=== PATIENT | female | born 1960 | race Caucasian/White ===

== ENCOUNTER 2016-11-30 19:25 | Emergency (ER) | payer MEDICARE ==
[2016-11-30] MEDS ORDERED: Sodium Chloride 0.9% 10 ML Syringe FLUSH PRN (19:35)
[2016-11-30] MEDS ORDERED: LORazepam 2 MG/ML MDV IM ONE (20:00)
[2016-11-30] MEDS ORDERED: LORazepam 2 MG/ML MDV IVPUSH ONE (20:03)
[2016-11-30 20:34] VITALS: BP 154/107
--- NOTE | 2016-11-30 22:19 | ER ---
DATE SEEN: 11/30/2016 REASON FOR VISIT: Palpitations. HISTORY OF PRESENT ILLNESS: This is a 56-year-old female complaining of palpitations this morning. As noted, this has not been associated with any chest pain, but has difficulty breathing. Symptoms got worse through the day. No chest pain. REVIEW OF SYSTEMS: No fever or chills. PAST MEDICAL HISTORY: Alcohol withdrawal, anxiety, depression. PHYSICAL EXAMINATION: GENERAL: She is not in any distress. VITAL SIGNS: Initial blood pressure is 172/111, temperature 97.9, and oxygenation 100% room air. EARS, NOSE, AND THROAT: Negative. HEAD: Normal size. NECK: Supple. CHEST: Clear breath sounds. CARDIOVASCULAR: Mild tachycardia. MENTAL STATUS: Anxious. LABORATORY DATA: Normal labs including troponin and D-dimer. EKG rather is negative. IMPRESSION: Tachycardia likely anxiety disorder. PLAN: 1 mg of lorazepam improved her symptoms significantly. She was sent home to follow up in the next couple of days. Advised to drink lots of fluids. Follow up with PCP. Time seen was 1930 hours. /[id number] SIDDHARTHA/MODL
== END 2016-11-30 20:50 | disposition home or self-care (01) ==
LOC: FB.ED 19:25
DX: R00.0 Tachycardia, unspecified (principal); F41.9 Anxiety disorder, unspecified; F32.9 Major depressive disorder, single episode, unspecified
CPT/HCPCS: 36415; 80048; 83880; 84484; 85025; 85379; 93005; 96374; 99283; J2060; J7050

== ENCOUNTER 2017-02-02 16:08 | Emergency (ER) | payer MEDICARE ==
[2017-02-02] MEDS ORDERED: Metoprolol Tartrate 50 MG Tab PO ONE (16:34)
[2017-02-02] MEDS ORDERED: LORazepam 2 MG/ML MDV IVPUSH ONE (16:44)
[2017-02-02] MEDS ORDERED: Sodium Chloride 0.9% 10 ML Syringe FLUSH PRN (16:50)
--- NOTE | 2017-02-02 16:50 | EDM.PDOC ---
ED HPI GENERAL MEDICAL PROBLEM - General Chief Complaint: Cardiovascular Problem Stated Complaint: CHEST PRESSURE Time Seen by Provider: 02/02/17 16:35 Source of Information: Reports: Patient, Old Records History Limitations: Reports: Other (Don't have ready access to all of her old records.) - History of Present Illness INITIAL COMMENTS - FREE TEXT/NARRATIVE: 56 yo female was referred from the clinic for afib with RVR. States she is not currently on any meds for this. It was at least a year since she last had an episode of this. Was cardioverted in the past for this. When she went to bed last night she had a normal rhythm and rate. Awoke this morning with the tachycardia/irregular rhythm. Has no CP or SOB or diaphoresis. Last ETOH over a year ago. No tobacco for several yrs. No thyroid testing since 11/13. Onset: Today Onset Date: 02/02/17 Duration: Hour(s): Location: Reports: Chest Quality: Reports: Other (No pain.) Severity: Moderate Improves with: Reports: Rest Worsens with: Reports: Movement (Exertion) Context: Reports: Other (Hx of afib) Associated Symptoms: Reports: No Other Symptoms Treatments CLINICAL PHLEBOTOMIST: Reports: Other (see below) (none) - Related Data Allergies Allergy/AdvReac Type Severity Reaction Status Date / Time sumatriptan [From Imitrex] Allergy Severe Airway Verified 02/02/17 18:25 Tightness sumatriptan succinate Allergy Severe Airway Verified 02/02/17 18:25 [From Imitrex] Tightness amoxicillin trihydrate Allergy Rash Verified 02/02/17 18:25 [From Augmentin] aripiprazole [From Abilify] Allergy Swelling Verified 02/02/17 18:25 clonidine Allergy Other Verified 02/02/17 18:25 ketorolac tromethamine Allergy Tachycardia Verified 02/02/17 18:25 [From Toradol] methotrexate Allergy Swelling Verified 02/02/17 18:25 NSAIDS (Non-Steroidal Allergy Tachycardia Verified 02/02/17 18:25 Anti-Inflamma potassium clavulanate Allergy Rash Verified 02/02/17 18:25 [From Augmentin] pregabalin [From Lyrica] Allergy Swelling Verified 02/02/17 18:25 tramadol Allergy Seizure Verified 02/02/17 18:25 Home Meds: Home Meds Aspirin [[place] Aspirin] 81 mg PO DAILY 02/02/17 [History] LORazepam [Ativan] 0.5 mg PO Q8H PRN #7 tab 02/02/17 [Rx] LORazepam [Ativan] 0.5 mg PO TID PRN #7 tablet 02/02/17 [Rx] Metoprolol Succinate [Toprol XL] 50 mg PO BEDTIME #30 tab.er 02/02/17 [Rx] Potassium Chloride 10 meq PO TID #20 cap.er 02/02/17 [Rx] Rivaroxaban [Xarelto] 20 mg PO DAILY #30 tablet 02/02/17 [Rx] Past Medical History Cardiovascular History: Reports: Afib, Hypertension, [place] Gastrointestinal History: Reports: Bowel Obstruction, Hiatal Hernia Genitourinary History: Reports: Renal 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 - Past Surgical History GI Surgical History: Reports: Bariatric Procedure Musculoskeletal Surgical History: Reports: Other (See Below) Social & Family History - Family History Family Medical History: Noncontributory - Tobacco Use Smoking Status *Q: Never Smoker Used Tobacco, but Quit: Yes Month Tobacco Last Used: mar 2005 Second Hand Smoke Exposure: No - Caffeine Use Caffeine Use: Reports: Coffee, Soda - Alcohol Use Days Per Week of Alcohol Use: 1 Number of Drinks Per Day: 3 Total Drinks Per Week: 3 - Recreational Drug Use Recreational Drug Use: No - Living Situation & Occupation Living situation: Reports: Occupation: Disabled ED ROS GENERAL - Review of Systems Review Of Systems: See Below Constitutional: Reports: No Symptoms HEENT: Reports: No Symptoms Respiratory: Reports: No Symptoms Cardiovascular: Reports: Palpitations GI/Abdominal: Reports: No Symptoms Musculoskeletal: Reports: No Symptoms Skin: Reports: No Symptoms Neurological: Reports: No Symptoms Psychiatric: Reports: Anxiety ED EXAM, GENERAL - Physical Exam Exam: See Below Exam Limited By: No Limitations General Appearance: Alert, WD/WN, No Apparent Distress Eye Exam: Bilateral Eye: Normal Inspection Ears: Normal External Exam, Normal Canal, Hearing Grossly Normal Ear Exam: Bilateral Ear: Auricle Normal, Canal Normal Nose: Normal Inspection, Normal Mucosa Throat/Mouth: Normal Inspection, Normal Lips, Normal Oropharynx, Normal Voice, No Airway Compromise Head: Atraumatic, Normocephalic Neck: Normal Inspection, Supple Respiratory/Chest: No Respiratory Distress, Lungs Clear, Normal Breath Sounds, No Accessory Muscle Use Cardiovascular: Tachycardia, Irregularly Irregular GI/Abdominal: Normal Bowel Sounds, Soft, Non-Tender, No Distention Back Exam: Normal Inspection. No: CVA Tenderness (R), CVA Tenderness (L) Extremities: Normal Inspection, Normal Range of Motion, Non-Tender, No Pedal Edema Neurological: Alert, Oriented, CN II-XII Intact, Normal Cognition, No Motor/ Sensory Deficits Psychiatric: Normal Affect, Normal Mood Skin Exam: Warm, Dry, Intact, Normal Color, No Rash Lymphatic: No Adenopathy ED CARDIOLOGY PROCEDURES - Cardioversion Time of Cardioversion: 17:10 Indication: Atrial Fibrillation with RVR Patient Counseled: Yes Informed Consent Obtained: Yes Preparation: IV Access, Airway Management Equipment, Supplemental Oxygen, Other (anesthesia here with patient) Pre-Procedure Sedation: Propofol Cardioversion Energy: 200J Sync Mode: Monophasic Successful: Yes Number of Attempts: 1 Patient Condition Post Cardioversion: Improved Post Cardioversion EKG Reviewed: No (front desk monitor showed NSR) Course - Vital Signs Text/Narrative:: CHADS2 score 1, low risk. Discussed case with Dr. Griffin, [facility] Cardiology @ 1810h Xarelto recommended by Dr. Griffin, will provide an Rx for this and have patient discuss with her provider. Last Recorded V/S: Last Vital Signs Temp 36.1 C 02/02/17 17:39 Pulse 106 H 02/02/17 18:30 Resp 14 02/02/17 17:39 BP 132/75 02/02/17 18:30 Pulse Ox 99 02/02/17 17:39 - Orders/Labs/Meds Orders: Active Orders 24 hr Category Date Time Status Cardiac Monitoring [RC] .As Directed Care 02/02/17 16:26 Active EKG Documentation Completion [RC] ASDIRECTED Care 02/02/17 16:25 Active Saline Lock Insert [OM.PC] Routine Oth 02/02/17 16:50 Ordered EKG 12 Lead [EK] Routine Ther 02/02/17 16:25 Ordered Labs: Laboratory Tests 02/02/17 02/02/17 02/02/17 Range/Units 16:40 16:40 16:40 WBC 7.3 (4.5-12.0) X10-3/uL RBC 4.08 (3.23-5.20) x10(6)uL Hgb 8.2 L (11.5-15.5) g/dL Hct 28.2 L (30.0-51.3) % MCV 69.0 L (80-96) fL MCH 20.0 L (27.7-33.6) pg MCHC 29.0 L (32.2-35.4) g/dL RDW 18.6 H (11.5-15.5) % Plt Count 369 (125-369) X10(3)uL Sodium 143 (135-145) mmol/L Potassium 3.1 L (3.5-5.3) mmol/L Chloride 114 H D (100-110) mmol/L Carbon Dioxide 16 L (23-29) mmol/L BUN 14 (5-20) mg/dL Creatinine 0.5 L (0.6-1.3) mg/dL Est Cr Clr Drug Dosing TNP Estimated GFR (MDRD) > 60 (>60) BUN/Creatinine Ratio 28.0 H (9-20) Glucose 63 L (80-116) mg/dL Calcium 8.2 L (8.6-10.2) mg/dL Magnesium (1.8-2.5) mg/dL Troponin I 0.01 L (0.02-0.06) NG/ML TSH, Ultra Sensitive (0.4-5.5) nlU/mL 02/02/17 02/02/17 Range/Units 16:40 16:40 WBC (4.5-12.0) X10-3/uL RBC (3.23-5.20) x10(6)uL Hgb (11.5-15.5) g/dL Hct (30.0-51.3) % MCV (80-96) fL MCH (27.7-33.6) pg MCHC (32.2-35.4) g/dL RDW (11.5-15.5) % Plt Count (125-369) X10(3)uL Sodium (135-145) mmol/L Potassium (3.5-5.3) mmol/L Chloride (100-110) mmol/L Carbon Dioxide (23-29) mmol/L BUN (5-20) mg/dL Creatinine (0.6-1.3) mg/dL Est Cr Clr Drug Dosing Estimated GFR (MDRD) (>60) BUN/Creatinine Ratio (9-20) Glucose (80-116) mg/dL Calcium (8.6-10.2) mg/dL Magnesium 1.9 (1.8-2.5) mg/dL Troponin I (0.02-0.06) NG/ML TSH, Ultra Sensitive 1.62 (0.4-5.5) nlU/mL Meds: Medications Discontinued Medications Generic Name Dose Route Start Last Admin Trade Name Freq PRN Reason Stop Dose Admin Aspirin 243 mg 02/02/17 18:38 02/02/17 18:48 Aspirin PO 02/02/17 18:39 243 mg ONETIME ONE Administration Lactated Ringer's 1,000 mls @ 0 mls/hr 02/02/17 17:15 02/02/17 18:07 Ringers, Lactated IV 10 mls/hr ASDIRECTED KATHRYN Administration KVO Lorazepam 1 mg 02/02/17 16:44 02/02/17 16:54 Ativan IVPUSH 02/02/17 16:45 1 mg ONETIME ONE Administration Metoprolol Succinate 50 mg 02/02/17 18:13 02/02/17 18:30 Toprol Xl PO 02/02/17 18:14 50 mg ONETIME ONE Administration Metoprolol Succinate 50 mg 02/02/17 18:35 02/02/17 18:48 Toprol Xl PO 02/02/17 18:36 Not Given ONETIME ONE Metoprolol Succinate Confirm 02/02/17 18:28 02/02/17 18:49 Toprol Xl Administered 02/02/17 18:29 Not Given Dose 50 mg .ROUTE .STK-MED ONE Metoprolol Tartrate 50 mg 02/02/17 16:34 02/02/17 18:17 Lopressor PO 02/02/17 16:35 Not Given ONETIME ONE Metoprolol Tartrate Confirm 02/02/17 18:24 02/02/17 18:47 Lopressor Administered 02/02/17 18:25 Not Given Dose 50 mg .ROUTE .STK-MED ONE Potassium Chloride 40 meq 02/02/17 17:18 02/02/17 18:06 Klor-Con 10 PO 02/02/17 17:19 40 meq ONETIME ONE Administration Sodium Chloride 10 ml 02/02/17 16:50 02/02/17 16:40 Saline Flush FLUSH 10 ml ASDIRECTED PRN Administration Keep Vein Open Departure - Departure Time of Disposition: 18:35 Disposition: Home, Self-Care 01 Condition: Good Clinical Impression: Atrial fibrillation with RVR, Hypokalemia Prescriptions: LORazepam [Ativan] 0.5 mg PO TID PRN #7 tablet PRN Reason: Anxiety LORazepam [Ativan] 0.5 mg PO Q8H PRN #7 tab PRN Reason: Anxiety Metoprolol Succinate [Toprol XL] 50 mg PO BEDTIME #30 tab.er Potassium Chloride 10 meq PO TID #20 cap.er Rivaroxaban [Xarelto] 20 mg PO DAILY #30 tablet Referrals: Rolf Paige MD [Primary Care Provider] - Forms: ED Department Discharge Additional Instructions: Take metoprolol succinate 50 mg every evening. Take either aspirin 81 mg po x 4 daily with food OR Xarelto 20 mg daily(discuss with your provider). Use the potassium 3 times a day until gone. Eat a high potassium diet. Take lorazepam as needed for anxiety. See your doctor for recheck within the week, call for an appt. Return to the ER as needed. Discuss with your provider possible referral to cardiology for elecrophysiological studies(EPS) if your atrial fibrillation returns. Avoid alcohol or tobacco products. - My Orders Last 24 Hours: My Active Orders 02/02/17 16:25 EKG Documentation Completion [RC] ASDIRECTED EKG 12 Lead [EK] Routine 02/02/17 16:26 Cardiac Monitoring [RC] .As Directed 02/02/17 16:50 Saline Lock Insert [OM.PC] Routine - Assessment/Plan Last 24 Hours: My Active Orders 02/02/17 16:25 EKG Documentation Completion [RC] ASDIRECTED EKG 12 Lead [EK] Routine 02/02/17 16:26 Cardiac Monitoring [RC] .As Directed 02/02/17 16:50 Saline Lock Insert [OM.PC] Routine
[2017-02-02] MEDS ORDERED: Propofol 200 MG/20 ML SDV IV ONE (16:55)
[2017-02-02] MEDS ORDERED: Midazolam 1 MG/ML 2 ML SDV IV ONE (16:55)
[2017-02-02] MEDS ORDERED: Lactated Ringers 1,000 ML IV SCH (17:15)
[2017-02-02] MEDS ORDERED: Potassium Chloride 10 MEQ Tab.ER PO ONE (17:18)
[2017-02-02] MEDS ORDERED: Metoprolol Succinate 50 MG Tab.ER PO ONE ×2 (18:13→18:35)
[2017-02-02] MEDS ORDERED: Metoprolol Tartrate 50 MG Tab ONE (18:24)
[2017-02-02] MEDS ORDERED: Metoprolol Succinate 50 MG Tab.ER ONE (18:28)
[2017-02-02] MEDS ORDERED: Aspirin 81 MG Tab.Chew PO ONE (18:38)
[2017-02-02 18:46] VITALS: BP 132/75
== END 2017-02-02 18:49 | disposition home or self-care (01) ==
LOC: FB.ED 16:08
DX: I48.91 Unspecified atrial fibrillation (principal); E87.6 Hypokalemia; I10 Essential (primary) hypertension; I25.2 Old myocardial infarction; G43.909 Migraine, unspecified, not intractable, without status migrainosus; Z98.84 Bariatric surgery status; Z79.82 Long term (current) use of aspirin; Z79.899 Other long term (current) drug therapy; Z88.1 Allergy status to other antibiotic agents; Z88.8 Allergy status to other drugs, medicaments and biological substances; Z88.6 Allergy status to analgesic agent; Z88.2 Allergy status to sulfonamides
CPT/HCPCS: 36415; 80048; 83735; 84443; 84484; 85027; 92960; 93005; 96361; 96374; 96375; 99284; 99285; A9270; J2060; J2250; J2704; J7050; J7120

== ENCOUNTER 2017-02-11 14:35 | Emergency (ER) | payer MEDICARE ==
[2017-02-11] MEDS ORDERED: LORazepam 1 MG Tab PO ONE (15:14)
--- NOTE | 2017-02-11 15:24 | EDM.PDOCBH ---
ED HPI GENERAL MEDICAL PROBLEM - General Chief Complaint: Behavioral/Psych Stated Complaint: DT'S AND SOB AND CHEST PAIN Time Seen by Provider: 02/11/17 15:00 Source of Information: Reports: Patient, Old Records History Limitations: Reports: No Limitations - History of Present Illness INITIAL COMMENTS - FREE TEXT/NARRATIVE: 56 yo female presents with chest tightness most of the day today. She has a pHx of CAD and alcoholism. Had been sober for over a year and drank last night to the point of blacking out. Apparently hit her forehead and the back of her head last night, but does not remember it. Is now also shaky. Feels anxious. Is on metoprolol for HTN and has not missed any doses of this. Onset: Today Onset Date: 02/11/17 Onset Time: 08:00 Duration: Hour(s):, Constant Location: Reports: Chest Quality: Reports: Other (heaviness/mild pressure) Severity: Moderate Improves with: Reports: None Worsens with: Reports: None Context: Reports: Other (drank alcohol heavily last night.) Associated Symptoms: Reports: Chest Pain. Denies: Diaphoresis, Fever/Chills, Nausea/Vomiting, Shortness of Breath Treatments CLINICAL CARE LEADER: Reports: Other (see below) (none) - Related Data Allergies Allergy/AdvReac Type Severity Reaction Status Date / Time sumatriptan [From Imitrex] Allergy Severe Airway Verified 02/02/17 18:25 Tightness sumatriptan succinate Allergy Severe Airway Verified 02/02/17 18:25 [From Imitrex] Tightness amoxicillin trihydrate Allergy Rash Verified 02/02/17 18:25 [From Augmentin] aripiprazole [From Abilify] Allergy Swelling Verified 02/02/17 18:25 clonidine Allergy Other Verified 02/02/17 18:25 ketorolac tromethamine Allergy Tachycardia Verified 02/02/17 18:25 [From Toradol] methotrexate Allergy Swelling Verified 02/02/17 18:25 NSAIDS (Non-Steroidal Allergy Tachycardia Verified 02/02/17 18:25 Anti-Inflamma potassium clavulanate Allergy Rash Verified 02/02/17 18:25 [From Augmentin] pregabalin [From Lyrica] Allergy Swelling Verified 02/02/17 18:25 tramadol Allergy Seizure Verified 02/02/17 18:25 Home Meds: Home Meds Aspirin [[place] Aspirin] 81 mg PO DAILY 02/02/17 [History] LORazepam [Ativan] 0.5 mg PO Q8H PRN #7 tab 02/02/17 [Rx] LORazepam [Ativan] 0.5 mg PO TID PRN #7 tablet 02/02/17 [Rx] Metoprolol Succinate [Toprol XL] 50 mg PO BEDTIME #30 tab.er 02/02/17 [Rx] Potassium Chloride 10 meq PO TID #20 cap.er 02/02/17 [Rx] Rivaroxaban [Xarelto] 20 mg PO DAILY #30 tablet 02/02/17 [Rx] Past Medical History Cardiovascular History: Reports: Afib, Hypertension, [place] Gastrointestinal History: Reports: Bowel Obstruction, Hiatal Hernia Genitourinary History: Reports: Renal Calculus 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 - Infectious Disease History Infectious Disease History: Reports: Chicken Pox, Measles, Mumps - Past Surgical History GI Surgical History: Reports: Bariatric Procedure Musculoskeletal Surgical History: Reports: Other (See Below) Social & Family History - Family History Family Medical History: Noncontributory - Tobacco Use Smoking Status *Q: Former Smoker Used Tobacco, but Quit: Yes Month Tobacco Last Used: may 2009 Second Hand Smoke Exposure: No - Caffeine Use Caffeine Use: Reports: Coffee, Soda - Alcohol Use Days Per Week of Alcohol Use: 1 Number of Drinks Per Day: 3 Total Drinks Per Week: 3 - Recreational Drug Use Recreational Drug Use: No - Living Situation & Occupation Living situation: Reports: Occupation: Disabled ED ROS GENERAL - Review of Systems Review Of Systems: See Below Constitutional: Reports: No Symptoms HEENT: Reports: No Symptoms Respiratory: Reports: No Symptoms Cardiovascular: Reports: Chest Pain Endocrine: Reports: No Symptoms GI/Abdominal: Reports: No Symptoms : Reports: Dysuria (mild) Musculoskeletal: Reports: No Symptoms Skin: Reports: No Symptoms Neurological: Reports: No Symptoms Psychiatric: Reports: Anxiety ED EXAM, BEHAVIORAL HEALTH - Physical Exam Exam: See Below Exam Limited By: No Limitations General Appearance: Alert, WD/WN, No Apparent Distress, Anxious Eye Exam: Bilateral Eye: Normal Inspection Ears: Normal External Exam, Normal Canal, Hearing Grossly Normal Nose: Normal Inspection, Normal Mucosa Throat/Mouth: Normal Inspection, Normal Lips, Normal Teeth, Normal Oropharynx, Normal Voice, No Airway Compromise Head: Atraumatic, Normocephalic Neck: Normal Inspection, Supple, Non-Tender Respiratory/Chest: No Respiratory Distress, Lungs Clear, Normal Breath Sounds, No Accessory Muscle Use Cardiovascular: Regular Rate, Rhythm EKG INTERPRETATION EKG Date: 02/11/17 Time: 15:00 Rhythm: NSR Rate (Beats/Min): 100 Silver: Normal P-Wave: Present QRS: Normal ST-T: Normal QT: Normal (no longer in Afib) Comparison: Change From Previous EKG (No longer in atrial fibrillation.) COURSE, BEHAVIORAL HEALTH COMP - Course Vital Signs: Last Vital Signs Temp 37.2 C 02/11/17 14:40 Pulse 86 02/11/17 16:46 Resp 18 02/11/17 16:46 BP 153/82 H 02/11/17 16:46 Pulse Ox 99 02/11/17 16:46 Orders, Labs, Meds: Active Orders 24 hr Category Date Time Status Cardiac Monitoring [RC] .As Directed Care 02/11/17 14:51 Active EKG 12 Lead [EK] Routine Ther 02/11/17 14:51 Ordered Laboratory Tests 02/11/17 02/11/17 Range/Units 15:34 15:42 Troponin I < 0.01 L (0.02-0.06) NG/ML Urine Color Yellow (YELLOW) Urine Appearance Slightly cloudy (CLEAR) Urine pH 5.0 (5.0-6.5) Ur Specific Fisher 1.025 (1.010-1.025) Urine Protein 30 H (NEGATIVE) mg/dL Urine Glucose (UA) Normal (NEGATIVE) mg/dL Urine Ketones Negative (NEGATIVE) mg/dL Urine Occult Blood Negative (NEGATIVE) Urine Nitrite Negative (NEGATIVE) Urine Bilirubin Small H (NEGATIVE) Urine Urobilinogen Normal (NEGATIVE) mg/dL Ur Leukocyte Esterase Negative (NEGATIVE) Urine RBC 0-5 (0) Urine WBC 0-5 (0) Ur Squamous Epith Cells Few H (NS,R,O) Urine Bacteria Few H (NS) Coarse Granular Casts Few H (NS) Medications Discontinued Medications Generic Name Dose Route Start Last Admin Trade Name Freq PRN Reason Stop Dose Admin Lorazepam 1 mg 02/11/17 15:14 02/11/17 15:22 Ativan PO 02/11/17 15:15 1 mg ONETIME ONE Administration Metoprolol Tartrate 50 mg 02/11/17 15:59 02/11/17 16:08 Lopressor PO 02/11/17 16:00 50 mg ONETIME ONE Administration Departure - Departure Time of Disposition: 17:04 Disposition: Home, Self-Care 01 Condition: Fair Clinical Impression: HTN (hypertension) Qualifiers: Hypertension type: unspecified Qualified Code(s): I10 - Essential (primary) hypertension Alcohol withdrawal Qualifiers: Complication of substance-induced condition: uncomplicated Qualified Code(s): F10.230 - Alcohol dependence with withdrawal, uncomplicated Contusion of scalp Qualifiers: Encounter type: initial encounter Qualified Code(s): S00.03XA - Contusion of scalp, initial encounter - Discharge Information Referrals: Rolf Paige MD [Primary Care Provider] - Forms: ED Department Discharge - My Orders Last 24 Hours: My Active Orders 02/11/17 14:51 Cardiac Monitoring [RC] .As Directed EKG 12 Lead [EK] Routine - Assessment/Plan Last 24 Hours: My Active Orders 02/11/17 14:51 Cardiac Monitoring [RC] .As Directed EKG 12 Lead [EK] Routine
[2017-02-11] MEDS ORDERED: Metoprolol Tartrate 50 MG Tab PO ONE (15:59)
[2017-02-11 17:14] VITALS: BP 146/74
== END 2017-02-11 17:20 | disposition home or self-care (01) ==
LOC: FB.ED 14:35
DX: S00.03XA Contusion of scalp, initial encounter (principal); F10.230 Alcohol dependence with withdrawal, uncomplicated; I10 Essential (primary) hypertension; I48.91 Unspecified atrial fibrillation; I25.2 Old myocardial infarction; F41.9 Anxiety disorder, unspecified; Z88.8 Allergy status to other drugs, medicaments and biological substances; Z88.1 Allergy status to other antibiotic agents; Z88.6 Allergy status to analgesic agent; Z88.5 Allergy status to narcotic agent; Z79.82 Long term (current) use of aspirin; Z79.899 Other long term (current) drug therapy; Z87.442 Personal history of urinary calculi; Z87.891 Personal history of nicotine dependence; W22.8XXA Striking against or struck by other objects, initial encounter
CPT/HCPCS: 36415; 81001; 84484; 93005; 99284; A9270

== ENCOUNTER 2017-02-17 03:40 | Emergency (ER) | payer MEDICARE ==
--- NOTE | 2017-02-17 04:41 | EDM.PDOC ---
ED HPI GENERAL MEDICAL PROBLEM - General Chief Complaint: Chest Pain Stated Complaint: CHEST PAIN Time Seen by Provider: 02/17/17 04:04 Source of Information: Reports: Patient, Family History Limitations: Reports: No Limitations - History of Present Illness INITIAL COMMENTS - FREE TEXT/NARRATIVE: 56 y.o.w.f. -smoker- came to the ed due to left ant chest pain, same at on 2016. Pt was at that time d/c'd with anxiety. Pt tooke all her meds, Today, she woke up again with chest pain. No N/V/D or diaphoresis. No trauma. No dizziness. No other acute medical issues at this time. Onset: Unknown/Unsure Onset Date: 02/16/17 Onset Time: 07:00 Duration: Hour(s): Location: Reports: Chest Quality: Reports: Ache Severity: Mild Improves with: Reports: Rest Worsens with: Reports: Movement Context: Reports: Other Associated Symptoms: Reports: No Other Symptoms - Related Data Allergies Allergy/AdvReac Type Severity Reaction Status Date / Time sumatriptan [From Imitrex] Allergy Severe Airway Verified 02/17/17 03:59 Tightness sumatriptan succinate Allergy Severe Airway Verified 02/17/17 03:59 [From Imitrex] Tightness amoxicillin trihydrate Allergy Rash Verified 02/17/17 03:59 [From Augmentin] aripiprazole [From Abilify] Allergy Swelling Verified 02/17/17 03:59 clonidine Allergy Other Verified 02/17/17 03:59 ketorolac tromethamine Allergy Tachycardia Verified 02/17/17 03:59 [From Toradol] methotrexate Allergy Swelling Verified 02/17/17 03:59 NSAIDS (Non-Steroidal Allergy Tachycardia Verified 02/17/17 03:59 Anti-Inflamma potassium clavulanate Allergy Rash Verified 02/17/17 03:59 [From Augmentin] pregabalin [From Lyrica] Allergy Swelling Verified 02/17/17 03:59 tramadol Allergy Seizure Verified 02/17/17 03:59 Home Meds: Home Meds Aspirin [[place] Aspirin] 81 mg PO DAILY 02/02/17 [History] Metoprolol Succinate [Toprol XL] 50 mg PO BEDTIME #30 tab.er 02/02/17 [Rx] LORazepam 1 mg PO QID PRN #14 tablet 02/11/17 [Rx] LORazepam [Ativan] 0.5 mg PO BID PRN #5 tab 02/17/17 [Rx] Past Medical History Cardiovascular History: Reports: Afib, Hypertension, [place] Gastrointestinal History: Reports: Bowel Obstruction, Hiatal Hernia Genitourinary History: Reports: Renal Calculus [employer]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 - Infectious Disease History Infectious Disease History: Reports: Chicken Pox, Measles, Mumps - Past Surgical History GI Surgical History: Reports: Bariatric Procedure Musculoskeletal Surgical History: Reports: Other (See Below) Social & Family History - Family History Family Medical History: Noncontributory - Tobacco Use Smoking Status *Q: Never Smoker Years of Tobacco use: 42 Used Tobacco, but Quit: Yes Month Tobacco Last Used: may 2009 Second Hand Smoke Exposure: No - Caffeine Use Caffeine Use: Reports: Coffee, Soda - Alcohol Use Days Per Week of Alcohol Use: 1 Number of Drinks Per Day: 3 Total Drinks Per Week: 3 Date of Last Drink: 02/12/17 - Recreational Drug Use Recreational Drug Use: No - Living Situation & Occupation Living situation: Reports: Occupation: Disabled ED ROS GENERAL - Review of Systems Review Of Systems: See Below Constitutional: Reports: No Symptoms HEENT: Reports: No Symptoms Respiratory: Reports: No Symptoms Cardiovascular: Reports: Chest Pain Endocrine: Reports: No Symptoms GI/Abdominal: Reports: No Symptoms : Reports: No Symptoms Musculoskeletal: Reports: No Symptoms Skin: Reports: No Symptoms Neurological: Reports: No Symptoms Psychiatric: Reports: No Symptoms Hematologic/Lymphatic: Reports: No Symptoms Immunologic: Reports: No Symptoms ED EXAM, GENERAL - Physical Exam Exam: See Below Exam Limited By: No Limitations General Appearance: Alert, WD/WN, Anxious Eye Exam: Bilateral Eye: Normal Inspection Ears: Normal External Exam Ear Exam: Bilateral Ear: Auricle Normal Nose: Normal Inspection, Normal Mucosa Throat/Mouth: Normal Inspection, Normal Lips Head: Atraumatic, Normocephalic Neck: Normal Inspection, Supple, Non-Tender Respiratory/Chest: No Respiratory Distress, Lungs Clear, Normal Breath Sounds Cardiovascular: Normal Peripheral Pulses, Regular Rate, Rhythm, No Edema, No Gallop Peripheral Pulses: 1+: Femoral (L), Femoral (R) GI/Abdominal: Normal Bowel Sounds, Soft, Non-Tender (Female) Exam: Deferred Rectal (Female) Exam: Deferred Back Exam: Normal Inspection, Full Range of Motion Extremities: Normal Inspection (s/p surgery r ankle) Neurological: Alert, Oriented, CN II-XII Intact Psychiatric: Normal Affect, Normal Mood Skin Exam: Warm, Dry, Intact, Normal Color Lymphatic: No Adenopathy EKG INTERPRETATION EKG Date: 02/17/17 Time: 03:50 Rhythm: NSR Rate (Beats/Min): 54 [place]: Normal P-Wave: Present QRS: Normal ST-T: Normal QT: Normal Comparison: NA - No Prior EKG Course - Vital Signs Text/Narrative:: 56 y.o.w.f. -smoker- came to the ed due to left ant chest pain, same at on 2016. Pt was at that time d/c'd with anxiety. Pt tooke all her meds, Today, she woke up again with chest pain. No N/V/D or diaphoresis. No trauma. No dizziness. No other acute medical issues at this time. PE: Anxiety Labs: HGB 9.0, Troponin 0.01 Na 140, K 3.6 CXR: not indicated Impression: Atypical chest pain Tx: Ativan Reexam: Improved Plan: D/C with instruction Last Recorded V/S: Last Vital Signs Temp 36.4 C 02/17/17 04:04 Pulse 57 L 02/17/17 05:00 Resp 18 02/17/17 04:04 BP 137/56 L 02/17/17 05:00 Pulse Ox 100 02/17/17 04:04 - Orders/Labs/Meds Orders: Active Orders 24 hr Category Date Time Status EKG 12 Lead [EK] Routine Ther 02/17/17 03:45 Ordered Labs: Laboratory Tests 02/17/17 02/17/17 02/17/17 Range/Units 03:55 03:55 03:55 WBC 6.5 (4.5-12.0) X10-3/uL RBC 4.62 (3.23-5.20) x10(6)uL Hgb 9.0 L (11.5-15.5) g/dL Hct 31.0 (30.0-51.3) % MCV 67.1 L (80-96) fL MCH 19.5 L (27.7-33.6) pg MCHC 29.0 L (32.2-35.4) g/dL RDW 18.0 H (11.5-15.5) % Plt Count 237 (125-369) X10(3)uL Sodium 140 (135-145) mmol/L Potassium 3.6 (3.5-5.3) mmol/L Chloride 107 D (100-110) mmol/L Carbon Dioxide 24 (23-29) mmol/L BUN 10 (5-20) mg/dL Creatinine 0.4 L (0.6-1.3) mg/dL Est Cr Clr Drug Dosing TNP Estimated GFR (MDRD) > 60 (>60) BUN/Creatinine Ratio 25.0 H (9-20) Glucose 101 (80-116) mg/dL POC Glucose (80-116) mg/dL Calcium 8.7 (8.6-10.2) mg/dL Total Bilirubin 0.3 (0.1-1.3) mg/dL AST 31 H D (5-27) IU/L ALT 32 H D (14-26) IU/L Alkaline Phosphatase 138 H (56-112) IU/L Troponin I < 0.01 L (0.02-0.06) NG/ML Total Protein 6.5 (6.0-8.0) g/dL Albumin 3.7 (3.5-5.2) g/dL Globulin 2.8 g/dL Albumin/Globulin Ratio 1.3 02/17/17 Range/Units 04:19 WBC (4.5-12.0) X10-3/uL RBC (3.23-5.20) x10(6)uL Hgb (11.5-15.5) g/dL Hct (30.0-51.3) % MCV (80-96) fL MCH (27.7-33.6) pg MCHC (32.2-35.4) g/dL RDW (11.5-15.5) % Plt Count (125-369) X10(3)uL Sodium (135-145) mmol/L Potassium (3.5-5.3) mmol/L Chloride (100-110) mmol/L Carbon Dioxide (23-29) mmol/L BUN (5-20) mg/dL Creatinine (0.6-1.3) mg/dL Est Cr Clr Drug Dosing Estimated GFR (MDRD) (>60) BUN/Creatinine Ratio (9-20) Glucose (80-116) mg/dL POC Glucose 103 (80-116) mg/dL Calcium (8.6-10.2) mg/dL Total Bilirubin (0.1-1.3) mg/dL AST (5-27) IU/L ALT (14-26) IU/L Alkaline Phosphatase (56-112) IU/L Troponin I (0.02-0.06) NG/ML Total Protein (6.0-8.0) g/dL Albumin (3.5-5.2) g/dL Globulin g/dL Albumin/Globulin Ratio Meds: Medications Discontinued Medications Generic Name Dose Route Start Last Admin Trade Name Freq PRN Reason Stop Dose Admin Lorazepam 0.5 mg 02/17/17 05:00 02/17/17 05:03 Ativan PO 02/17/17 05:01 0.5 mg ONETIME ONE Administration Departure - Departure Time of Disposition: 05:00 Disposition: Home, Self-Care 01 Condition: Good Clinical Impression: Anxiety, Atypical chest pain Prescriptions: LORazepam [Ativan] 0.5 mg PO BID PRN #5 tab PRN Reason: severe anxiety Referrals: Rolf Paige MD [Primary Care Provider] - Forms: ED Department Discharge Additional Instructions: Please f/u with your PMD, please come back if your symptoms get worse acutely - My Orders Last 24 Hours: My Active Orders 02/17/17 03:45 EKG 12 Lead [EK] Routine - Assessment/Plan Last 24 Hours: My Active Orders 02/17/17 03:45 EKG 12 Lead [EK] Routine
[2017-02-17] MEDS ORDERED: LORazepam 0.5 MG Tab PO ONE (05:00)
[2017-02-17 05:42] VITALS: BP 137/56
== END 2017-02-17 05:10 | disposition home or self-care (01) ==
LOC: FB.ED 03:40
DX: F41.9 Anxiety disorder, unspecified (principal); R07.89 Other chest pain; I10 Essential (primary) hypertension; I25.2 Old myocardial infarction; G43.909 Migraine, unspecified, not intractable, without status migrainosus; Z88.1 Allergy status to other antibiotic agents; Z88.8 Allergy status to other drugs, medicaments and biological substances; Z79.82 Long term (current) use of aspirin
CPT/HCPCS: 36415; 80053; 82962; 84484; 85027; 93005; 99285; A9270; 99284

== ENCOUNTER 2018-02-15 03:11 | Emergency (ER) | payer MEDICARE, MEDICAID ==
[2018-02-15] MEDS ORDERED: Labetalol 20 MG/4 ML Syringe IVPUSH ONE (03:35)
[2018-02-15] MEDS ORDERED: LORazepam 2 MG/ML SDV IVPUSH ONE ×2 (03:35→05:42)
--- NOTE | 2018-02-15 03:43 | EDM.PDOC ---
ED HPI GENERAL MEDICAL PROBLEM - General Chief Complaint: Head Injury Stated Complaint: CHESTPAIN Time Seen by Provider: 02/15/18 03:37 Source of Information: Reports: Patient History Limitations: Reports: No Limitations - History of Present Illness INITIAL COMMENTS - FREE TEXT/NARRATIVE: History of alcoholism, drank alcohol last night, fell out of bed onto floor at 8pm, +LOC. Patient states she hadn't drank for a month prior to last night. Complains of palpiations, chest pain, neck pain and headache. Onset Date: 02/14/18 Onset Time: 20:00 Location: Reports: Head, Face, Neck Quality: Reports: Ache Severity: Moderate - Related Data Allergies Allergy/AdvReac Type Severity Reaction Status Date / Time sumatriptan [From Imitrex] Allergy Severe Airway Verified 02/15/18 03:33 Tightness sumatriptan succinate Allergy Severe Airway Verified 02/15/18 03:33 [From Imitrex] Tightness amoxicillin trihydrate Allergy Rash Verified 02/15/18 03:33 [From Augmentin] aripiprazole [From Abilify] Allergy Swelling Verified 02/15/18 03:33 clonidine Allergy Other Verified 02/15/18 03:33 ketorolac tromethamine Allergy Tachycardia Verified 02/15/18 03:33 [From Toradol] methotrexate Allergy Swelling Verified 02/15/18 03:33 NSAIDS (Non-Steroidal Allergy Tachycardia Verified 02/15/18 03:33 Anti-Inflamma potassium clavulanate Allergy Rash Verified 02/15/18 03:33 [From Augmentin] pregabalin [From Lyrica] Allergy Swelling Verified 02/15/18 03:33 tramadol Allergy Seizure Verified 02/15/18 03:33 Home Meds: Home Meds Aspirin [[place] Aspirin] 81 mg PO DAILY 02/02/17 [History] Cyanocobalamin (Vitamin B12) [Vitamin B12] 1,000 mcg IJ WEEKLY 12/24/17 [History ] Multivitamin [Multi-Vitamin Daily] 1 tab PO DAILY 12/24/17 [History] Cephalexin [Keflex] 500 mg PO TID #21 capsule 02/15/18 [Rx] Lisinopril 10 mg PO DAILY 02/15/18 [History] Past Medical History Cardiovascular History: Reports: Afib, Hypertension, [place] Gastrointestinal History: Reports: Bowel Obstruction, Hiatal Hernia Genitourinary History: Reports: 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 - Infectious Disease History Infectious Disease History: Reports: Chicken Pox, Measles, Mumps - Past Surgical History GI Surgical History: Reports: Bariatric Procedure Musculoskeletal Surgical History: Reports: Other (See Below) Social & Family History - Family History Family Medical History: Noncontributory - Tobacco Use Smoking Status *Q: Never Smoker - Caffeine Use Caffeine Use: Reports: Coffee - Alcohol Use Alcohol Use History: Yes - Recreational Drug Use Recreational Drug Use: No - Living Situation & Occupation Living situation: Reports: Occupation: Disabled ED ROS GENERAL - Review of Systems Review Of Systems: See Below Constitutional: Reports: No Symptoms HEENT: Reports: Other (right periorbital bruising, no vision changes). Denies: Eye Pain Respiratory: Reports: No Symptoms Cardiovascular: Reports: Chest Pain, Palpitations Endocrine: Reports: No Symptoms GI/Abdominal: Reports: No Symptoms : Reports: No Symptoms Musculoskeletal: Reports: No Symptoms Neurological: Reports: Headache ED EXAM, HEAD INJURY - Physical Exam Exam: See Below Exam Limited By: No Limitations General Appearance: Alert, WD/WN, No Apparent Distress Head: Other (right periorital ecchymosis) Nexus Criteria: Posterior, Midline Cervical Tenderness (mild) Eyes: Bilateral Eye: EOMI (visual espana intact), PERRL Ears: Normal External Exam Nose: Normal Inspection Throat/Mouth: Normal Inspection Neck: Other (mild posterior neck tenderness) Respiratory: No Respiratory Distress, Lungs Clear, Normal Breath Sounds Cardiovascular: No Murmur, Tachycardia Back Exam: Full Range of Motion Extremities: Normal Range of Motion Neurologic: No Motor/Sensory Deficits, Alert, Oriented x 3, Other (anxious) Skin: Warm/Dry - [place] Coma Score Best Eye Response (Pavel): (4) Open Spontaneously Best Verbal Response (Pavel): (5) Oriented Best Motor Response (Pavel): (6) Obeys Commands Pavel Total: 15 EKG INTERPRETATION EKG Date: 02/15/18 Time: 03:57 Rhythm: NSR Rate (Beats/Min): 92 [place]: Normal P-Wave: Present QRS: Normal ST-T: Other (early repol) QT: Normal Comparison: No Change (02/17/17) Course - Vital Signs Last Recorded V/S: Last Vital Signs Temp Pulse 120 H 02/15/18 03:15 Resp 24 H 02/15/18 03:15 BP 193/114 H 02/15/18 03:15 Pulse Ox 98 02/15/18 03:15 - Orders/Labs/Meds Orders: Active Orders 24 hr Category Date Time Status EKG Documentation Completion [RC] ASDIRECTED Care 02/15/18 03:36 Active CXR [Chest 2V] [CR] Stat Exams 02/15/18 03:41 Ordered Cervical Spine wo Cont [CT] Stat Exams 02/15/18 03:33 Ordered Head wo Cont [CT] Stat Exams 02/15/18 03:33 Ordered Max Facial Sinus wo Cont [CT] Stat Exams 02/15/18 03:33 Ordered MVI, Adult with Vitamin K [Infuvite Adult] 10 ml Med 02/15/18 03:45 Active Thiamine [Vitamin B-1] 100 mg Folic Acid 1 mg Magnesium Sulfate [Magnesium Sulfate 50%] 3 gm Sodium Chloride 0.9% [Normal Saline] 1,000 ml IV ASDIRECTED EKG 12 Lead [EK] Stat Ther 02/15/18 03:36 Ordered Medication Orders Multivitamins/Minerals 10 ml/Thiamine HCl 100 mg/ Folic Acid 1 mg/ Magnesium Sulfate 3 gm/ Sodium Chloride 1,017.2 mls @ 250 mls/hr IV ASDIRECTED KATHRYN Last Admin: 02/15/18 04:30 Dose: 250 mls/hr Labs: Laboratory Tests 02/15/18 02/15/18 02/15/18 Range/Units 03:45 03:45 03:45 WBC 10.8 (4.5-12.0) X10-3/uL RBC 5.49 H (3.23-5.20) x10(6)uL Hgb 16.3 H D (11.5-15.5) g/dL Hct 50.2 D (30.0-51.3) % MCV 91.6 (80-96) fL MCH 29.7 (27.7-33.6) pg MCHC 32.4 (32.2-35.4) g/dL RDW 12.9 (11.5-15.5) % Plt Count 204 (125-369) X10(3)uL MPV 9.4 (7.4-10.4) fL Add Manual Diff Yes Neutrophils % (Manual) 79 (46-82) % Band Neutrophils % 1 (0-6) % Lymphocytes % (Manual) 15 (13-37) % Monocytes % (Manual) 5 (4-12) % PT (8.7-11.1) INR (0.89-1.13) Sodium 144 (135-145) mmol/L Potassium 3.4 L (3.5-5.3) mmol/L Chloride 107 (100-110) mmol/L Carbon Dioxide 21 (21-32) mmol/L BUN 11 (7-18) mg/dL Creatinine 0.5 L (0.55-1.02) mg/dL Est Cr Clr Drug Dosing 120.72 mL/min Estimated GFR (MDRD) > 60 (>60) BUN/Creatinine Ratio 22.0 H (9-20) Glucose 130 H (80-116) mg/dL Calcium 9.0 (8.6-10.2) mg/dL Magnesium 1.5 L (1.8-2.5) mg/dL Total Bilirubin 0.3 (0.1-1.3) mg/dL AST 25 (5-25) IU/L ALT 39 H (12-36) U/L Alkaline Phosphatase 82 (56-112) IU/L Troponin I (<0.017-0.056) ng/mL Total Protein 7.7 (6.0-8.0) g/dL Albumin 3.9 (3.5-5.2) g/dL Globulin 3.8 g/dL Albumin/Globulin Ratio 1.0 Ethyl Alcohol 0.07 H (<0.03) % 02/15/18 02/15/18 Range/Units 03:45 03:45 WBC (4.5-12.0) X10-3/uL RBC (3.23-5.20) x10(6)uL Hgb (11.5-15.5) g/dL Hct (30.0-51.3) % MCV (80-96) fL MCH (27.7-33.6) pg MCHC (32.2-35.4) g/dL RDW (11.5-15.5) % Plt Count (125-369) X10(3)uL MPV (7.4-10.4) fL Add Manual Diff Neutrophils % (Manual) (46-82) % Band Neutrophils % (0-6) % Lymphocytes % (Manual) (13-37) % Monocytes % (Manual) (4-12) % PT 10.3 (8.7-11.1) INR 1.06 (0.89-1.13) Sodium (135-145) mmol/L Potassium (3.5-5.3) mmol/L Chloride (100-110) mmol/L Carbon Dioxide (21-32) mmol/L BUN (7-18) mg/dL Creatinine (0.55-1.02) mg/dL Est Cr Clr Drug Dosing mL/min Estimated GFR (MDRD) (>60) BUN/Creatinine Ratio (9-20) Glucose (80-116) mg/dL Calcium (8.6-10.2) mg/dL Magnesium (1.8-2.5) mg/dL Total Bilirubin (0.1-1.3) mg/dL AST (5-25) IU/L ALT (12-36) U/L Alkaline Phosphatase (56-112) IU/L Troponin I < 0.017 L (<0.017-0.056) ng/mL Total Protein (6.0-8.0) g/dL Albumin (3.5-5.2) g/dL Globulin g/dL Albumin/Globulin Ratio Ethyl Alcohol (<0.03) % Meds: Medications Generic Name Dose Route Start Last Admin Trade Name Freq PRN Reason Stop Dose Admin Multivitamins/Minerals 10 ml/ 1,017.2 mls @ 250 mls/hr 02/15/18 03:45 04:30 Thiamine HCl 100 mg/ Folic IV 250 mls/hr Acid 1 mg/ Magnesium Sulfate 3 ASDIRECTED KATHRYN Administration gm/ Sodium Chloride Discontinued Medications Generic Name Dose Route Start Last Admin Trade Name Freq PRN Reason Stop Dose Admin Hydralazine HCl 10 mg 02/15/18 05:12 02/15/18 05:27 Apresoline IVPUSH 02/15/18 05:13 10 mg ONETIME ONE Administration Labetalol HCl 10 mg 02/15/18 03:35 02/15/18 03:45 Normodyne IVPUSH 02/15/18 03:36 10 mg ONETIME ONE Administration Protocol Lorazepam 1 mg 02/15/18 03:35 02/15/18 03:45 Ativan IVPUSH 02/15/18 03:36 1 mg ONETIME ONE Administration Lorazepam 0.5 mg 02/15/18 05:42 02/15/18 05:50 Ativan IVPUSH 02/15/18 05:43 0.5 mg ONETIME ONE Administration - Radiology Interpretation Free Text/Narrative:: Facial CT: fracture base of left nasal bone, right frontal scalp and right periorbital hematoma, near opacification left maxillary sinus. CXR: NAD CT C-spine: No acute trauma. Head CT: No evidence of acute intracranial trauma. - Re-Assessments/Exams Free Text/Narrative Re-Assessment/Exam: 02/15/18 06:04 BP 157/91, HR 105 Departure - Departure Time of Disposition: 06:05 Disposition: Home, Self-Care 01 Condition: Good Clinical Impression: Periorbital hematoma of right eye, Alcohol abuse Head trauma Qualifiers: Encounter type: initial encounter Qualified Code(s): S09.90XA - Unspecified injury of head, initial encounter Nasal bone fracture Qualifiers: Encounter type: initial encounter Fracture type: closed Qualified Code(s): S02.2XXA - Fracture of nasal bones, initial encounter for closed fracture Hypertension Qualifiers: Hypertension type: unspecified Qualified Code(s): I10 - Essential (primary) hypertension - Discharge Information *PRESCRIPTION DRUG MONITORING PROGRAM REVIEWED*: Yes *COPY OF PRESCRIPTION DRUG MONITORING REPORT IN PATIENT PIO: No Prescriptions: Cephalexin [Keflex] 500 mg PO TID #21 capsule Instructions: Alcohol Use Disorder, Nasal Fracture, [id number], Head Injury, Adult, [id number], Hypertension, [id number], Hematoma, [id number] Referrals: Mj Akins MD [Primary Care Provider] - Forms: ED Department Discharge Additional Instructions: Continue your current medications. Avoid alcohol use. Fill prescription for Keflex and take as directed. Follow up with an ENT physician in 3-4 days. Apply cool pack to hematoma. Follow up with your primary physician in 1-2 days. Return to the ER if symptoms worsen. - My Orders Last 24 Hours: My Active Orders 02/15/18 03:33 Cervical Spine wo Cont [CT] Stat Head wo Cont [CT] Stat Max Facial Sinus wo Cont [CT] Stat 02/15/18 03:36 EKG Documentation Completion [RC] ASDIRECTED EKG 12 Lead [EK] Stat 02/15/18 03:41 CXR [Chest 2V] [CR] Stat 02/15/18 03:45 MVI, Adult with Vitamin K [Infuvite Adult] 10 ml Thiamine [Vitamin B-1] 100 mg Folic Acid 1 mg Magnesium Sulfate [Magnesium Sulfate 50%] 3 gm Sodium Chloride 0.9% [Normal Saline] 1,000 ml IV ASDIRECTED - Assessment/Plan Last 24 Hours: My Active Orders 02/15/18 03:33 Cervical Spine wo Cont [CT] Stat Head wo Cont [CT] Stat Max Facial Sinus wo Cont [CT] Stat 02/15/18 03:36 EKG Documentation Completion [RC] ASDIRECTED EKG 12 Lead [EK] Stat 02/15/18 03:41 CXR [Chest 2V] [CR] Stat 02/15/18 03:45 MVI, Adult with Vitamin K [Infuvite Adult] 10 ml Thiamine [Vitamin B-1] 100 mg Folic Acid 1 mg Magnesium Sulfate [Magnesium Sulfate 50%] 3 gm Sodium Chloride 0.9% [Normal Saline] 1,000 ml IV ASDIRECTED
[2018-02-15] MEDS ORDERED: MVI, Adult with Vitamin K 10 ML, Thiamine 100 MG, Folic Acid 1 MG, Magnesium Sulfate 3 ... IV SCH ×5 (03:45)
[2018-02-15] MEDS ORDERED: hydrALAZINE 20 MG/ML SDV IVPUSH ONE (05:12)
[2018-02-15] MEDS ORDERED: Ondansetron 4 MG/2 ML SDV IVPUSH ONE (06:13)
[2018-02-15 22:52] VITALS: BP 159/94
== END 2018-02-15 06:45 | disposition home or self-care (01) ==
LOC: FB.ED 03:11
DX: S06.9X9A Unspecified intracranial injury with loss of consciousness of unspecified duration, initial encounter (principal); S02.2XXA Fracture of nasal bones, initial encounter for closed fracture; S00.11XA Contusion of right eyelid and periocular area, initial encounter; I10 Essential (primary) hypertension; F10.20 Alcohol dependence, uncomplicated; I48.91 Unspecified atrial fibrillation; I25.2 Old myocardial infarction; F41.9 Anxiety disorder, unspecified; W06.XXXA Fall from bed, initial encounter; Z79.899 Other long term (current) drug therapy; Z88.8 Allergy status to other drugs, medicaments and biological substances; Z88.5 Allergy status to narcotic agent
CPT/HCPCS: 36415; 70450; 70486; 71046; 72125; 80053; 83735; 84484; 85025; 85610; 93005; 96365; 96366; 96375; 96376; 99284; G0480; J0360; J2060; J2405; J3411; J3475; J3490; J7030

== ENCOUNTER 2018-06-08 09:56 | Emergency (ER) | payer MEDICAID, MEDICARE ==
[2018-06-08] MEDS: Ondansetron 4 MG/2 ML SDV IVPUSH STA (10:15)
[2018-06-08] MEDS: Labetalol 20 MG/4 ML Syringe IVPUSH ONE (10:18)
--- NOTE | 2018-06-08 10:41 | EDM.PDOC ---
ED HPI GENERAL MEDICAL PROBLEM - General Stated Complaint: HEADACHE Time Seen by Provider: 06/08/18 09:01 Source of Information: Reports: Patient History Limitations: Reports: No Limitations - History of Present Illness INITIAL COMMENTS - FREE TEXT/NARRATIVE: 58 y.o.w.f with H/O anxiety, Miraine H/A and biopolar disorder, came to the ed due to photophobia, Headache and nausea. Pt denied trauma. No fever. Pt received Fentanyl and Zofran from the EMS ACID RETORT OPERATOR. BP was 220/120 when the EMS arrived at the scene. Pt denied trauma, but says it is the worst headache ever. BP 205/123 Pulse 114 RR 18 Pulse ox 97% on RA Temp 36.8 Onset Date: 06/08/18 Onset Time: 06:00 Duration: Hour(s):, Getting Worse, Intermittent Location: Reports: Head Quality: Reports: Dull, Pressure, Other (worst headache ever) Improves with: Reports: Medication Worsens with: Reports: None Associated Symptoms: Reports: Nausea/Vomiting Treatments ACID RETORT OPERATOR: Reports: Other (see below) (Fentanyl and Zofran was given ACID RETORT OPERATOR) - Related Data Allergies Allergy/AdvReac Type Severity Reaction Status Date / Time sumatriptan [From Imitrex] Allergy Severe Airway Verified 06/08/18 10:03 Tightness sumatriptan succinate Allergy Severe Airway Verified 06/08/18 10:03 [From Imitrex] Tightness amoxicillin trihydrate Allergy Rash Verified 06/08/18 10:03 [From Augmentin] aripiprazole [From Abilify] Allergy Swelling Verified 06/08/18 10:03 clonidine Allergy Other Verified 06/08/18 10:03 ketorolac tromethamine Allergy Tachycardia Verified 06/08/18 10:03 [From Toradol] methotrexate Allergy Swelling Verified 06/08/18 10:03 NSAIDS (Non-Steroidal Allergy Tachycardia Verified 06/08/18 10:03 Anti-Inflamma potassium clavulanate Allergy Rash Verified 06/08/18 10:03 [From Augmentin] pregabalin [From Lyrica] Allergy Swelling Verified 06/08/18 10:03 tramadol Allergy Seizure Verified 02/15/18 03:33 Home Meds: Home Meds Aspirin [[facility]ynn Aspirin] 81 mg PO DAILY 02/02/17 [History] Multivitamin [Multi-Vitamin Daily] 1 tab PO DAILY 12/24/17 [History] Lisinopril 5 mg PO DAILY #10 tablet 06/08/18 [Rx] Sulfamethoxazole/Trimethoprim [Bactrim Ds Tablet] 1 each PO BID #20 tablet 06/08 [Rx] Vitamin B Complex No.12/Niacin [Rabano Yodado Liquid] 50 mg SL DAILY 06/08/18 [ History] Past Medical History Cardiovascular History: Reports: Afib, Hypertension, [place] Gastrointestinal History: Reports: Bowel Obstruction, Hiatal Hernia Genitourinary History: Reports: Renal Calculus 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 - Infectious Disease History Infectious Disease History: Reports: Chicken Pox, Measles, Mumps - Past Surgical History GI Surgical History: Reports: Bariatric Procedure Musculoskeletal Surgical History: Reports: Other (See Below) Social & Family History - Family History Family Medical History: Noncontributory - Caffeine Use Caffeine Use: Reports: Coffee - Living Situation & Occupation Living situation: Reports: Occupation: Disabled ED ROS GENERAL - Review of Systems Review Of Systems: See Below Constitutional: Reports: No Symptoms HEENT: Reports: No Symptoms Respiratory: Reports: No Symptoms Cardiovascular: Reports: No Symptoms Endocrine: Reports: No Symptoms GI/Abdominal: Reports: No Symptoms : Reports: No Symptoms Musculoskeletal: Reports: No Symptoms Skin: Reports: No Symptoms Neurological: Reports: Headache Psychiatric: Reports: Anxiety Hematologic/Lymphatic: Reports: No Symptoms Immunologic: Reports: No Symptoms - Physical Exam Exam: See Below Exam Limited By: No Limitations General Appearance: Alert, WD/WN, Mild Distress Eye Exam: Bilateral Eye: Normal Inspection Ears: Normal External Exam Nose: Normal Inspection Throat/Mouth: Normal Inspection, Normal Lips, Normal Voice, No Airway Compromise Head Exam: Atraumatic, Normocephalic Neck: Normal Inspection, Supple, Non-Tender Respiratory/Chest: No Respiratory Distress, Lungs Clear, Normal Breath Sounds, No Accessory Muscle Use, Chest Non-Tender Cardiovascular: Normal Peripheral Pulses, Regular Rate, Rhythm, No Edema, No Gallop, No Murmur, No Rub GI/Abdominal: Normal Bowel Sounds, Soft, Non-Tender, No Organomegaly, No Distention, No Abnormal Bruit, No Mass, Pelvis Stable (Female) Exam: Deferred Rectal (Female) Exam: Deferred Neuro Exam (Abbreviated): Alert, Oriented, CN II-XII Intact, Normal Cognition, Normal Gait Back Exam: Normal Inspection, Full Range of Motion Extremities: Normal Inspection, Normal Range of Motion, Non-Tender, No Pedal Edema, Normal Capillary Refill Psychiatric: Normal Affect, Normal Mood Skin Exam: Warm, Dry, Intact, Normal Color, No Rash Course - Vital Signs Text/Narrative:: 58 y.o.w.f with H/O anxiety, Miraine H/A and biopolar disorder, came to the ed due to photophobia, Headache and nausea. Pt denied trauma. No fever. Pt received Fentanyl and Zofran from the EMS ACID RETORT OPERATOR. BP was 220/120 when the EMS arrived at the scene. Pt denied trauma, but says it is the worst headache ever. BP 205/123 Pulse 114 RR 18 Pulse ox 97% on RA Temp 36.8 PE: WNWD WF C/O worse H/A ever at her post rusty with nausea, photophobia and HTN. pt is allergic to multiple meds Imaging: CT Head: Left Max sinusitis Labs: Not indicated Impression: Sinusitis, Migraina H/A, HTN Tx: Labetolol, Hydralacine, Zofran, Dexamethasone, Dilaudid, Bactrim Reexam: PT's symptoms improved Plan: D/C with instructions Last Recorded V/S: Last Vital Signs Temp 36.9 C 06/08/18 12:23 Pulse 94 06/08/18 13:04 Resp 18 06/08/18 12:23 BP 163/99 H 06/08/18 13:04 Pulse Ox 97 06/08/18 12:23 - Orders/Labs/Meds Meds: Medications Discontinued Medications Generic Name Dose Route Start Last Admin Trade Name Ricq PRN Reason Stop Dose Admin Dexamethasone 10 mg 06/08/18 10:32 06/08/18 10:50 Dexamethasone IVPUSH 06/08/18 10:33 10 mg ONETIME STA Administration Hydralazine HCl 10 mg 06/08/18 12:13 06/08/18 12:17 Apresoline IVPUSH 06/08/18 12:14 10 mg ONETIME ONE Administration Hydromorphone HCl 0.5 mg 06/08/18 10:58 06/08/18 11:05 Dilaudid IVPUSH 06/08/18 10:59 0.5 mg ONETIME ONE Administration Hydromorphone HCl 0.5 mg 06/08/18 12:21 06/08/18 12:29 Dilaudid IVPUSH 06/08/18 12:22 0.5 mg ONETIME ONE Administration Labetalol HCl 10 mg 06/08/18 10:04 06/08/18 10:18 Normodyne IVPUSH 06/08/18 10:05 10 mg ONETIME ONE Administration Protocol Ondansetron HCl 4 mg 06/08/18 10:03 06/08/18 10:15 Zofran IVPUSH 06/08/18 10:04 4 mg ONETIME STA Administration Trimethoprim/Sulfamethoxazole 1 tab 06/08/18 12:21 06/08/18 12:29 Septra Ds PO 06/08/18 12:22 1 tab ONETIME ONE Administration Departure - Departure Time of Disposition: 13:01 Disposition: Home, Self-Care 01 Condition: Good Clinical Impression: HTN (hypertension) Qualifiers: Hypertension type: unspecified Qualified Code(s): I10 - Essential (primary) hypertension Migraine Qualifiers: Migraine type: without aura Status migrainosus presence: without status migrainosus Intractability: not intractable Qualified Code(s): G43.009 - Migraine without aura, not intractable, without status migrainosus - Discharge Information Prescriptions: Lisinopril 5 mg PO DAILY #10 tablet Sulfamethoxazole/Trimethoprim [Bactrim Ds Tablet] 1 each PO BID #20 tablet Referrals: Mj Akins MD [Primary Care Provider] - Forms: ED Department Discharge Additional Instructions: Please take Bactrim DS as recommended, Lisinopril as recommended. Please F/U with your PMD/ENT, come back if your symptoms get worse acutely.
[2018-06-08] MEDS: Dexamethasone 4 MG/ML SDV IVPUSH STA (10:50)
[2018-06-08] MEDS: HYDROmorphone 2 MG/ML SDV IVPUSH ONE ×2 (11:05→12:29)
[2018-06-08] MEDS: hydrALAZINE 20 MG/ML SDV IVPUSH ONE (12:17)
[2018-06-08] MEDS: Sulfamethoxazole/Trimethoprim 800-160 MG Tab PO ONE (12:29)
[2018-06-08 13:04] VITALS: BP 163/99
== END 2018-06-08 13:20 | disposition home or self-care (01) ==
LOC: FB.ED 09:56
DX: I10 Essential (primary) hypertension (principal); G43.009 Migraine without aura, not intractable, without status migrainosus; J32.9 Chronic sinusitis, unspecified; I25.2 Old myocardial infarction; Z88.8 Allergy status to other drugs, medicaments and biological substances; Z79.82 Long term (current) use of aspirin; Z79.899 Other long term (current) drug therapy
CPT/HCPCS: 70450; 96374; 96375; 99285; A9270-GY; J0360; J1100; J1170; J2405; J3490

== ENCOUNTER 2018-06-08 20:11 | Emergency (ER) | payer MEDICARE ==
[2018-06-08] MEDS ORDERED: Acetaminophen/HYDROcodone 325-5 MG Tab PO ONE (20:12)
[2018-06-08] MEDS ORDERED: LORazepam 2 MG/ML SDV IM STA (21:07)
[2018-06-08] MEDS ORDERED: Labetalol 20 MG/4 ML Syringe IVPUSH ONE (21:08)
[2018-06-08] MEDS ORDERED: Sodium Chloride 0.9% 1,000 ML IV ONE (21:57)
[2018-06-08] MEDS ORDERED: LORazepam 2 MG/ML SDV IVPUSH STA (21:58)
--- NOTE | 2018-06-08 23:16 | EDM.PDOC ---
ED HPI GENERAL MEDICAL PROBLEM - General Chief Complaint: Headache Stated Complaint: HIGH BP, HEADACHE Time Seen by Provider: 06/08/18 20:14 Source of Information: Reports: Patient, Family History Limitations: Reports: No Limitations - History of Present Illness INITIAL COMMENTS - FREE TEXT/NARRATIVE: 58 y.o.w, f came again to the ed with severe headache. No trauma. 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 Pt was in the ed in the past 24 hours for the same issues. Her BP was 220/130, her H/A was generalized, had nausea and photophobia. She is allergic to multiple meds, not to Dilaudid, however. He H/A improved as the BP improved, she received dilaudid here in the ed after all Labs were nl and which was the only medication which would help her. Now, 12 hours later, pt came back for same. I was told by the nurse, pt had frequent visits to this ED wanting narcotics. Pt was again 220/ 130. Labetolol was given, which brought her BP down. BP 231/132 Pulse 91 RR 18 Pulse ox 96% on RA. Temp 36.8 Onset Date: 06/08/18 Onset Time: 19:00 Duration: Minutes:, Hour(s): Location: Reports: Head Quality: Reports: Ache, Burning, Dull, Pressure, Same as Previous Episode, Stabbing, Throbbing Severity: Moderate Improves with: Reports: Rest Worsens with: Reports: Movement Context: Reports: Other Associated Symptoms: Reports: Headaches Posterior head into shoulder & lower back into L hip Pain Score (Numeric/FACES): 8 - Related Data Allergies Allergy/AdvReac Type Severity Reaction Status Date / Time sumatriptan [From Imitrex] Allergy Severe Airway Verified 06/08/18 10:03 Tightness sumatriptan succinate Allergy Severe Airway Verified 06/08/18 10:03 [From Imitrex] Tightness amoxicillin trihydrate Allergy Rash Verified 06/08/18 10:03 [From Augmentin] aripiprazole [From Abilify] Allergy Swelling Verified 06/08/18 10:03 clonidine Allergy Other Verified 06/08/18 10:03 ketorolac tromethamine Allergy Tachycardia Verified 06/08/18 10:03 [From Toradol] methotrexate Allergy Swelling Verified 06/08/18 10:03 NSAIDS (Non-Steroidal Allergy Tachycardia Verified 06/08/18 10:03 Anti-Inflamma potassium clavulanate Allergy Rash Verified 06/08/18 10:03 [From Augmentin] pregabalin [From Lyrica] Allergy Swelling Verified 06/08/18 10:03 tramadol Allergy Seizure Verified 02/15/18 03:33 Home Meds: Home Meds Aspirin [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 History: Musculoskeletal History: Reports: Arthritis, Back Pain, Chronic, Fracture, Osteoporosis Other Musculoskeletal History: hx fx R asher/ankle with surgery, L wrist fx with surgery Neurological History: Reports: Migraines, Seizure Psychiatric History: Reports: Addiction, Anxiety, Emotional Problems, Other ( See Below) Other 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, 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 Hematologic History: Reports: Anemia, Blood Transfusion(s), Iron Deficiency - Infectious Disease History Infectious Disease History: Reports: Chicken Pox, Measles, MRSA, Mumps - Past Surgical History Cardiovascular Surgical History: Reports: None GI Surgical History: Reports: Bariatric Procedure, Cholecystectomy, Colonoscopy , EGD, Hernia Repair/Other Female Surgical History: Reports: Lithotripsy/ESWL, Ureteral Stent Neurological Surgical History: Reports: None Musculoskeletal Surgical History: Reports: ORIF, Other (See Below) Social & Family History - Family History Family Medical History: Noncontributory - Tobacco Use Smoking Status *Q: Former Smoker Years of Tobacco use: 30 Used Tobacco, but Quit: Yes Month/Year Tobacco Last Used: 2010 - Caffeine Use Caffeine Use: Reports: Coffee - Recreational Drug Use Recreational Drug Use: No - Living Situation & Occupation Living situation: Reports: Occupation: Disabled ED ROS GENERAL - Review of Systems Review Of Systems: See Below Constitutional: Reports: No Symptoms HEENT: Reports: No Symptoms Respiratory: Reports: No Symptoms Cardiovascular: Reports: No Symptoms Endocrine: Reports: No Symptoms GI/Abdominal: Reports: No Symptoms : Reports: No Symptoms Musculoskeletal: Reports: No Symptoms Skin: Reports: No Symptoms Neurological: Reports: Headache Psychiatric: Reports: No Symptoms Hematologic/Lymphatic: Reports: No Symptoms Immunologic: Reports: No Symptoms - Physical Exam Exam: See Below Exam Limited By: No Limitations General Appearance: Alert, WD/WN, Moderate Distress Eye Exam: Bilateral Eye: Normal Inspection Ears: Normal External Exam, Normal Canal Nose: Normal Inspection, Normal Mucosa, No Blood Throat/Mouth: Normal Inspection, Normal Lips, Normal Voice, No Airway Compromise Head Exam: Atraumatic, Normocephalic Neck: Normal Inspection, Supple, Non-Tender, Full Range of Motion Respiratory/Chest: No Respiratory Distress, Lungs Clear, Normal Breath Sounds, No Accessory Muscle Use, Chest Non-Tender Cardiovascular: Normal Peripheral Pulses, Regular Rate, Rhythm, No Edema, No Gallop, No JVD, No Murmur, No Rub GI/Abdominal: Normal Bowel Sounds, Soft, Non-Tender, No Organomegaly, No Distention, No Abnormal Bruit, No Mass, Pelvis Stable (Female) Exam: Deferred Rectal (Female) Exam: Deferred Neuro Exam (Abbreviated): Alert, Oriented, CN II-XII Intact, Normal Cognition, Normal Gait Back Exam: Normal Inspection, Full Range of Motion Extremities: Normal Inspection, Normal Range of Motion, Non-Tender, No Pedal Edema Psychiatric: Normal Affect, Normal Mood Skin Exam: Warm, Dry, Intact, Normal Color, No Rash Course - Vital Signs Text/Narrative:: 58 y.o.w, f came again to the ed with severe headache. No trauma. 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 Pt was in the ed in the past 24 hours for the same issues. Her BP was 220/130, her H/A was generalized, had nausea and photophobia. She is allergic to multiple meds, not to Dilaudid, however. He H/A improved as the BP improved, she received dilaudid here in the ed after all Labs were nl and which was the only medication which would help her. Now, 12 hours later, pt came back for same. I was told by the nurse, pt had frequent visits to this ED wanting narcotics. Pt was again 220/ 130. Labetolol was given, which brought her BP down. BP 231/132 Pulse 91 RR 18 Pulse ox 96% on RA. Temp 36.8 PE: WNWD W F with worst H/A ever and high BP. Imaging: form prev Visit: NAD Labs: CBC, BMP Nl Except BUN/CR ratio were elevated Impression: Tension Headache. HTN Tx: Labetolol, Ativan NS, Lisinopril Reexam: Improved. BP was 166/91 on D?c Plan: D/C with instructions Last Recorded V/S: Last Vital Signs Temp 36.3 C 06/08/18 21:38 Pulse 84 06/08/18 23:40 Resp 18 06/08/18 23:40 BP 166/107 H 06/08/18 23:43 Pulse Ox 95 06/08/18 23:40 - Orders/Labs/Meds Labs: Laboratory Tests 06/08/18 06/08/18 06/08/18 Range/Units 21:10 21:10 21:10 WBC 9.0 (4.5-12.0) X10-3/uL RBC 5.35 H (3.23-5.20) x10(6)uL Hgb 16.3 H (11.5-15.5) g/dL Hct 49.2 (30.0-51.3) % MCV 92.1 (80-96) fL MCH 30.5 (27.7-33.6) pg MCHC 33.1 (32.2-35.4) g/dL RDW 12.8 (11.5-15.5) % Plt Count 212 (125-369) X10(3)uL MPV 8.9 (7.4-10.4) fL Add Manual Diff Yes Neutrophils % (Manual) 84 H (46-82) % Lymphocytes % (Manual) 12 L (13-37) % Monocytes % (Manual) 4 (4-12) % Sodium 139 (135-145) mmol/L Potassium 4.3 (3.5-5.3) mmol/L Chloride 103 (100-110) mmol/L Carbon Dioxide 23 (21-32) mmol/L BUN 22 H D (7-18) mg/dL Creatinine 0.7 (0.55-1.02) mg/dL Est Cr Clr Drug Dosing 85.19 mL/min Estimated GFR (MDRD) > 60 (>60) BUN/Creatinine Ratio 31.4 H (9-20) Glucose 144 H (80-116) mg/dL Calcium 9.6 (8.6-10.2) mg/dL Creatine Kinase 91 (60-160) IU/L Meds: Medications Discontinued Medications Generic Name Dose Route Start Last Admin Trade Name Freq PRN Reason Stop Dose Admin Sodium Chloride 1,000 mls @ 999 mls/hr 06/08/18 21:57 06/08/18 22:01 Normal Saline IV 06/08/18 22:57 999 mls/hr .BOLUS ONE Administration Labetalol HCl 20 mg 06/08/18 21:08 06/08/18 21:38 Normodyne IVPUSH 06/08/18 21:09 20 mg ONETIME ONE Administration Protocol Lisinopril 20 mg 06/08/18 23:39 06/08/18 23:43 Prinivil PO 06/08/18 23:40 20 mg DAILY STA Administration Lorazepam 1 mg 06/08/18 21:07 06/08/18 23:26 Ativan IM 06/08/18 21:08 Not Given ONETIME STA Lorazepam 1 mg 06/08/18 21:58 06/08/18 22:13 Ativan IVPUSH 06/08/18 21:59 1 mg ONETIME STA Administration Orphenadrine Citrate 60 mg 06/08/18 20:57 06/08/18 21:37 Norflex IM 06/08/18 20:58 60 mg ONETIME STA Administration Sodium Chloride 10 ml 06/08/18 23:24 06/08/18 23:26 Saline Flush FLUSH 10 ml ASDIRECTED PRN Administration Keep Vein Open Departure - Departure Time of Disposition: 23:13 Disposition: Home, Self-Care 01 Condition: Good Clinical Impression: Tension headache - Discharge Information Instructions: Acetaminophen; Hydrocodone tablets or capsules, Labetalol injection, Tension Headache, Adult, [id number], Hypertension, [id number], Orphenadrine injection, Lorazepam injection Referrals: Mj Akins MD [Primary Care Provider] - Forms: ED Department Discharge Additional Instructions: Please follow with your neurologist in am. Hydrocodone/Acetaminophen 5/325 1 tablet every 4 hours as needed for severe pain. Follow up with your regular MD tomorrow at clinic for hypertension. Please come back if your symptoms get worse acutely.
[2018-06-08] MEDS ORDERED: Sodium Chloride 0.9% 10 ML Syringe FLUSH PRN (23:24)
[2018-06-08] MEDS ORDERED: Lisinopril 20 MG Tab PO STA (23:39)
[2018-06-08 23:41] VITALS: BP 166/107
== END 2018-06-08 23:52 | disposition home or self-care (01) ==
LOC: FB.ED 20:11
DX: G44.209 Tension-type headache, unspecified, not intractable (principal); I10 Essential (primary) hypertension; Z88.8 Allergy status to other drugs, medicaments and biological substances; Z79.899 Other long term (current) drug therapy; Z79.82 Long term (current) use of aspirin; Z87.891 Personal history of nicotine dependence
CPT/HCPCS: 36415; 80048; 82550; 85025; 96361; 96372; 96374; 96375; 99283; A9270; J2060; J2360; J3490; J7030

== ENCOUNTER 2019-07-05 14:48 | Emergency (ER) | payer MEDICARE ==
[2019-07-05] MEDS: Aspirin 81 MG Tab.Chew PO ONE ×2 (15:15→16:18)
--- NOTE | 2019-07-05 15:27 | EDM.PDOC ---
ED HPI GENERAL MEDICAL PROBLEM - General Chief Complaint: Chest Pain Stated Complaint: CHEST PAINS Time Seen by Provider: 07/05/19 15:20 Source of Information: Reports: Patient History Limitations: Reports: No Limitations - History of Present Illness INITIAL COMMENTS - FREE TEXT/NARRATIVE: 59-year-old female who reports that she broke her 3 year sobriety from alcohol on Wednesday and has been drinking alcohol heavily since then and reports that her last drink of alcohol was at 3 AM today. At approximately 6:30 AM she awoke and states she felt fine until approximately 10 AM when she began to feel achy in her shoulders and with a headache which she reports she has felt with a hangover in the past and she laid down to take a nap and approximately noon she developed sharp left-sided chest pain going into her left back. It was worse with standing and better with lying down. There was no change with deep breath. It was also worse with palpation. She rated the pain as a 5/10 at its worse and now the pain is down to a 4/10. She ate something at this time and drink some milk but then had nausea with vomiting and she has continued to have vomiting with dry heaving since that time. She also feels very shaky and sweaty and that developed at about the same time that she developed the chest pain as well. No syncope or near syncope. She does feel somewhat short of breath now. She also feels very anxious. No fevers or chills. No cough. No nasal congestion. She did fall yesterday getting out of the tub from slipping she states and struck her right arm and there is some bruising here. She denies any her head. She denies hitting anything else. There are no other associated signs or symptoms. There are no other modifying factors. Onset: Today (Noon) Duration: Constant Location: Reports: Chest Quality: Reports: Sharp Severity: Moderate Improves with: Reports: Other (Lying down) Worsens with: Reports: Other (Standing up. 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) (Nothing) L chest Pain Score (Numeric/FACES): 5 - Related Data Allergies Allergy/AdvReac Type Severity Reaction Status Date / Time sumatriptan [From Imitrex] Allergy Severe Airway Verified 07/05/19 15:04 Tightness sumatriptan succinate Allergy Severe Airway Verified 07/05/19 15:04 [From Imitrex] Tightness amoxicillin trihydrate Allergy Rash Verified 07/05/19 15:04 [From Augmentin] aripiprazole [From Abilify] Allergy Swelling Verified 07/05/19 15:04 clonidine Allergy Other Verified 07/05/19 15:04 ketorolac tromethamine Allergy Tachycardia Verified 07/05/19 15:04 [From Toradol] methotrexate Allergy Swelling Verified 07/05/19 15:04 NSAIDS (Non-Steroidal Allergy Tachycardia Verified 07/05/19 15:04 Anti-Inflamma potassium clavulanate Allergy Rash Verified 07/05/19 15:04 [From Augmentin] pregabalin [From Lyrica] Allergy Swelling Verified 07/05/19 15:04 tramadol Allergy Seizure Verified 07/05/19 15:04 Home Meds: Home Meds Aspirin [[place] Aspirin] 81 mg PO DAILY 02/02/17 [History] Multivitamin [Multi-Vitamin Daily] 1 tab PO DAILY 12/24/17 [History] Vit B Complex No.12/Niacin(B3) [[place] Liquid] 50 mg SL DAILY 06/08/18 [ History] ALPRAZolam [Alprazolam] 0.5 mg BID 07/05/19 [History] Baclofen 10 mg DAILY 07/05/19 [History] Ferrous Sulfate [Iron] 325 mg PO DAILY 07/05/19 [History] Hydrocodone/Acetaminophen [[place] 7.5-325 Tablet] 1 tab BID PRN 07/05/19 [History ] Metoprolol Succinate [Toprol XL] 25 mg PO DAILY 07/05/19 [History] Triazolam 0.25 mg BEDTIME PRN 07/05/19 [History] lamoTRIgine [Lamotrigine] 100 mg BEDTIME PRN 07/05/19 [History] Past Medical History Cardiovascular History: Reports: Afib, Hypertension, [place] (She states that she had cardiac catheterization x 2 with the last time in 2008 and it showed no blockages.) Gastrointestinal History: Reports: Hiatal Hernia Genitourinary History: Reports: Renal Calculus 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: Musculoskeletal History: Reports: Arthritis, Back Pain, Chronic, Fracture, Osteoporosis Other Musculoskeletal History: hx fx R asher/ankle with surgery, L wrist fx with surgery Neurological History: Reports: Migraines, Seizure Psychiatric History: Reports: Addiction (Alcohol abuse), Anxiety, Emotional Problems Hematologic History: Reports: Anemia, Blood Transfusion(s), Iron Deficiency - Infectious Disease History Infectious Disease History: Reports: Chicken Pox, Measles, MRSA, Mumps - Past Surgical History HEENT Surgical History: Reports: Tonsillectomy Cardiovascular Surgical History: Reports: Other (See Below) (Cardiac catheterization with no stents placed) GI Surgical History: Reports: Bariatric Procedure, Cholecystectomy, Colonoscopy , EGD, Hernia Repair/Other Female Surgical History: Reports: Lithotripsy/ESWL, Ureteral Stent Musculoskeletal Surgical History: Reports: ORIF (Left wrist), Shoulder Surgery, Other (See Below) (Right ankle fusion) Social & Family History - Tobacco Use Smoking Status *Q: Unknown Ever Smoked (Nonsmoker) - Caffeine Use Caffeine Use: Reports: Coffee - Alcohol Use Alcohol Use History: Yes Alcohol Use Frequency: Binges (Had been sober for 3 years until 07/03/2019 and has been drinking heavily 3 days area) - Living Situation & Occupation Living situation: Reports: Occupation: Disabled ED ROS GENERAL - Review of Systems Review Of Systems: See Below Constitutional: Reports: Malaise, Diaphoresis HEENT: Reports: No Symptoms Respiratory: Reports: Shortness of Breath Cardiovascular: Reports: Chest Pain GI/Abdominal: Reports: Nausea, Vomiting : Reports: No Symptoms Musculoskeletal: Reports: Back Pain (Upper), Other (Body aches) Skin: Reports: Diaphoresis Neurological: Reports: Headache Psychiatric: Reports: Anxiety Hematologic/Lymphatic: Reports: No Symptoms Immunologic: Reports: No Symptoms ED EXAM, GENERAL - Physical Exam Exam: See Below Exam Limited By: No Limitations General Appearance: Alert, WD/WN, Anxious, Moderate Distress Eye Exam: Bilateral Eye: EOMI, Normal Inspection, PERRL Ears: Normal External Exam, Hearing Grossly Normal Ear Exam: Bilateral Ear: Auricle Normal Nose: Normal Inspection, Normal Mucosa, No Blood Throat/Mouth: Normal Voice, No Airway Compromise, Other (Dry mucous membranes) Head: Atraumatic, Normocephalic Neck: Normal Inspection, Supple, Non-Tender, Full Range of Motion Respiratory/Chest: No Respiratory Distress, Lungs Clear, Normal Breath Sounds, No Accessory Muscle Use, Other (Tender to palpation over the left anterior, lateral and posterior upper chest) Cardiovascular: Normal Peripheral Pulses, No Edema, No JVD, No Murmur, Tachycardia Peripheral Pulses: 2+: Radial (L), Radial (R), Dorsalis Pedis (L), Dorsalis Pedis (R) GI/Abdominal: Normal Bowel Sounds, Soft, Non-Tender, No Organomegaly, No Mass Back Exam: Normal Inspection Extremities: Normal Inspection, Normal Range of Motion, Non-Tender, No Pedal Edema, Normal Capillary Refill Neurological: Alert, Oriented, CN II-XII Intact, Normal Cognition, No Motor/ Sensory Deficits Psychiatric: Anxious Skin Exam: Warm, Dry, Intact, Normal Color, No Rash EKG INTERPRETATION EKG Date: 07/05/19 Time: 14:59 Rhythm: Other (Sinus tachycardia) Rate (Beats/Min): 111 [place]: Normal P-Wave: Present QRS: Normal ST-T: Normal QT: Normal Comparison: No Change (No change from EKG on 02/15/2018) Course - Vital Signs Last Recorded V/S: Last Vital Signs Temp 36.8 C 07/05/19 14:52 Pulse 115 H 07/05/19 16:40 Resp 22 H 07/05/19 14:52 BP 148/118 H 07/05/19 16:40 Pulse Ox 98 07/05/19 14:52 - Orders/Labs/Meds Orders: Active Orders 24 hr Category Date Time Status Patient Status Manage Transfer [TRANSFER] Routine ADT 07/05/19 17:20 Ordered Patient Status [ADT] Routine ADT 07/05/19 17:08 Active Assess Neurological Status [RC] ASDIRECTED Care 07/05/19 17:08 Active CIWAA Assessment [RC] Q4H Care 07/05/19 17:08 Active Cardiac Monitoring [RC] .As Directed Care 07/05/19 17:08 Active EKG Documentation Completion [RC] ASDIRECTED Care 07/05/19 15:43 Active EKG Documentation Completion [RC] ASDIRECTED Care 07/05/19 17:17 Active Height and Weight [RC] UPON Care 07/05/19 17:08 Active Intake and Output [RC] QSHIFT Care 07/05/19 17:14 Active Notify Provider [RC] PRN Care 07/05/19 17:08 Active Oxygen Therapy [RC] PRN Care 07/05/19 17:08 Active Pulse Oximetry [RC] CONTINUOUS Care 07/05/19 17:09 Active Up With Assistance [RC] ASDIRECTED Care 07/05/19 17:08 Active VTE/DVT Education [RC] Per Unit Routine Care 07/05/19 17:08 Active Vital Signs [RC] Q1H Care 07/05/19 17:08 Active Clear Liquid Diet [DIET] Diet 07/05/19 Dinner Ordered Chest 1V Frontal [CR] Stat Exams 07/05/19 15:42 Taken CBC WITH AUTO DIFF [HEME] AM Lab 07/06/19 05:11 Ordered COMPREHENSIVE METABOLIC PN,CMP [CHEM] AM Lab 07/06/19 05:11 Ordered TROPONIN I [CHEM] AM Lab 07/06/19 05:11 Ordered TROPONIN I [CHEM] Routine Lab 07/05/19 22:00 Ordered Acetaminophen [Tylenol] Med 07/05/19 17:08 Ordered 650 mg PO Q4H PRN Folic Acid Med 07/05/19 17:15 Ordered 1 mg PO DAILY LORazepam [Ativan] Med 07/05/19 17:15 Ordered See Protocol IV ASDIRECTED Multivitamins [Tab-A-Demetrice] Med 07/05/19 17:15 Ordered 1 tab PO DAILY Ondansetron [Zofran] Med 07/05/19 17:08 Ordered 4 mg IV Q6H PRN Pantoprazole [ProTONIX IV] Med 07/05/19 17:15 Ordered 40 mg IV DAILY Sodium Chloride 0.9% [Normal Saline] 1,000 ml Med 07/05/19 15:45 Active IV ASDIRECTED Sodium Chloride 0.9% [Saline Flush] Med 07/05/19 15:42 Active 10 ml FLUSH ASDIRECTED PRN Thiamine [Vitamin B-1] 100 mg Med 07/05/19 17:15 Ordered Sodium Chloride 0.9% [Normal Saline] 50 ml IV DAILY Peripheral IV Insertion Adult [OM.PC] Routine Oth 07/05/19 15:42 Ordered Seizure Precautions [OM.PC] Routine Oth 07/05/19 17:08 Ordered Resuscitation Status Routine Resus Stat 07/05/19 17:08 Ordered EKG 12 Lead [EK] AM Ther 07/06/19 05:11 Ordered EKG 12 Lead [EK] Routine Ther 07/05/19 15:42 Ordered Medication Orders Acetaminophen (Tylenol) 650 mg PO Q4H PRN PRN Reason: Pain (Mild 1-3)/fever Folic Acid (Folic Acid) 1 mg PO DAILY [facility] Sodium Chloride (Normal Saline) 1,000 mls @ 100 mls/hr IV ASDIRECTED KATHRYN Last Admin: 07/05/19 15:52 Dose: 999 mls/hr Thiamine HCl 100 mg/ Sodium (Chloride) 51 mls @ 100 mls/hr IV DAILY KATHRYN Lorazepam (Ativan) 0 mg IV ASDIRECTED KATHRYN; Protocol Multivitamins/Minerals/Vitamin C (Tab-A-Demetrice) 1 tab PO DAILY KATHRYN Ondansetron HCl (Zofran) 4 mg IV Q6H PRN PRN Reason: Nausea/Vomiting Pantoprazole Sodium (Protonix Iv) 40 mg IV DAILY [facility] Sodium Chloride (Saline Flush) 10 ml FLUSH ASDIRECTED PRN PRN Reason: Keep Vein Open Last Admin: 07/05/19 15:16 Dose: 10 ml Labs: Laboratory Tests 07/05/19 07/05/19 07/05/19 Range/Units 15:00 15:00 15:00 WBC 9.5 (4.5-12.0) X10-3/uL RBC 4.44 (3.23-5.20) x10(6)uL Hgb 13.8 (11.5-15.5) g/dL Hct 42.2 (30.0-51.3) % MCV 95.0 (80-96) fL MCH 31.1 (27.7-33.6) pg MCHC 32.7 (32.2-35.4) g/dL RDW 13.9 (11.5-15.5) % Plt Count 356 (125-369) X10(3)uL MPV 8.6 (7.4-10.4) fL Neut % (Auto) 83.4 H (46-82) % Lymph % (Auto) 13.3 (13-37) % [place] % (Auto) 2.5 L (4-12) % Eos % (Auto) 0 L (1.0-5.0) % Baso % (Auto) 1 (0-2) % Neut # (Auto) 8.0 (1.6-8.3) # Lymph # (Auto) 1.3 (0.6-5.0) # [place] # (Auto) 0.2 (0.0-1.3) # Eos # (Auto) 0.0 (0.0-0.8) # Baso # (Auto) 0.0 (0.0-0.2) # PT 10.0 (8.7-11.1) INR 1.03 (0.89-1.13) APTT 20.2 L (24.4-33.2) SECONDS D-Dimer, Quantitative 0.51 (0.0-0.59) mg/LFEU Sodium 144 (135-145) mmol/L Potassium 4.0 (3.5-5.3) mmol/L Chloride 105 (100-110) mmol/L Carbon Dioxide 21 (21-32) mmol/L BUN 14 (7-18) mg/dL Creatinine 0.6 (0.55-1.02) mg/dL Est Cr Clr Drug Dosing 98.18 mL/min Estimated GFR (MDRD) > 60 (>60) BUN/Creatinine Ratio 23.3 H (9-20) Glucose 147 H (80-116) mg/dL Calcium 10.0 (8.6-10.2) mg/dL Magnesium (1.8-2.5) mg/dL Total Bilirubin 0.3 (0.1-1.3) mg/dL AST 33 H D (5-25) IU/L ALT 36 (12-36) U/L Alkaline Phosphatase 124 H (56-112) IU/L Troponin I (4.0-60.3) pg/mL Total Protein 7.3 (6.0-8.0) g/dL Albumin 4.1 (3.5-5.2) g/dL Globulin 3.2 g/dL Albumin/Globulin Ratio 1.3 Ethyl Alcohol (<0.03) % 07/05/19 07/05/19 07/05/19 Range/Units 15:00 15:00 15:00 WBC (4.5-12.0) X10-3/uL RBC (3.23-5.20) x10(6)uL Hgb (11.5-15.5) g/dL Hct (30.0-51.3) % MCV (80-96) fL MCH (27.7-33.6) pg MCHC (32.2-35.4) g/dL RDW (11.5-15.5) % Plt Count (125-369) X10(3)uL MPV (7.4-10.4) fL Neut % (Auto) (46-82) % Lymph % (Auto) (13-37) % [place] % (Auto) (4-12) % Eos % (Auto) (1.0-5.0) % Baso % (Auto) (0-2) % Neut # (Auto) (1.6-8.3) # Lymph # (Auto) (0.6-5.0) # [place] # (Auto) (0.0-1.3) # Eos # (Auto) (0.0-0.8) # Baso # (Auto) (0.0-0.2) # PT (8.7-11.1) INR (0.89-1.13) APTT (24.4-33.2) SECONDS D-Dimer, Quantitative (0.0-0.59) mg/LFEU Sodium (135-145) mmol/L Potassium (3.5-5.3) mmol/L Chloride (100-110) mmol/L Carbon Dioxide (21-32) mmol/L BUN (7-18) mg/dL Creatinine (0.55-1.02) mg/dL Est Cr Clr Drug Dosing mL/min Estimated GFR (MDRD) (>60) BUN/Creatinine Ratio (9-20) Glucose (80-116) mg/dL Calcium (8.6-10.2) mg/dL Magnesium 1.9 (1.8-2.5) mg/dL Total Bilirubin (0.1-1.3) mg/dL AST (5-25) IU/L ALT (12-36) U/L Alkaline Phosphatase (56-112) IU/L Troponin I 14.5 (4.0-60.3) pg/mL Total Protein (6.0-8.0) g/dL Albumin (3.5-5.2) g/dL Globulin g/dL Albumin/Globulin Ratio Ethyl Alcohol < 0.03 (<0.03) % Meds: Medications Generic Name Dose Route Start Last Admin Trade Name Freq PRN Reason Stop Dose Admin Acetaminophen 650 mg 07/05/19 17:08 Tylenol PO Q4H PRN Pain (Mild 1-3)/fever Folic Acid 1 mg 07/05/19 17:15 Folic Acid PO DAILY KATHRYN Sodium Chloride 1,000 mls @ 100 mls/hr 07/05/19 15:45 07/05/19 15:52 Normal Saline IV 999 mls/hr ASDIRECTED KATHRYN Administration Thiamine HCl 100 mg/ Sodium 51 mls @ 100 mls/hr 07/05/19 17:15 Chloride IV DAILY KATHRYN Lorazepam 0 mg 07/05/19 17:15 Ativan IV ASDIRECTED [facility] Protocol Multivitamins/Minerals/Vitamin C 1 tab 07/05/19 17:15 Tab-A-Demetrice PO DAILY KATHRYN Ondansetron HCl 4 mg 07/05/19 17:08 Zofran IV Q6H PRN Nausea/Vomiting Pantoprazole Sodium 40 mg 07/05/19 17:15 Protonix Iv IV DAILY KATHRYN Sodium Chloride 10 ml 07/05/19 15:42 07/05/19 15:16 Saline Flush FLUSH 10 ml ASDIRECTED PRN Administration Keep Vein Open Discontinued Medications Generic Name Dose Route Start Last Admin Trade Name Freq PRN Reason Stop Dose Admin Aspirin 243 mg 07/05/19 15:43 07/05/19 16:18 Aspirin PO 07/05/19 15:44 324 mg ONETIME ONE Administration Sodium Chloride 500 mls @ 999 mls/hr 07/05/19 15:43 Normal Saline IV 07/05/19 16:13 .BOLUS ONE Lorazepam 1 mg 07/05/19 15:43 07/05/19 15:52 Ativan IVPUSH 07/05/19 15:44 1 mg ONETIME ONE Administration Lorazepam 1 mg 07/05/19 16:24 07/05/19 16:39 Ativan IVPUSH 07/05/19 16:25 1 mg ONETIME ONE Administration Lorazepam 1 mg 07/05/19 16:53 Ativan IVPUSH 07/05/19 16:54 ONETIME ONE Metoprolol Succinate 25 mg 07/05/19 17:06 Toprol Xl PO 07/05/19 17:07 ONETIME ONE Metoprolol Tartrate 5 mg 07/05/19 16:24 07/05/19 16:40 Lopressor IVPUSH 07/05/19 16:25 5 mg ONETIME ONE Administration Metoprolol Tartrate 5 mg 07/05/19 16:53 Lopressor IVPUSH 07/05/19 16:54 ONETIME ONE Ondansetron HCl 4 mg 07/05/19 15:43 07/05/19 15:55 Zofran IVPUSH 07/05/19 15:44 4 mg ONETIME ONE Administration - Radiology Interpretation Free Text/Narrative:: Portable chest x-ray shows cardiomegaly but no acute disease per the radiologist. - Re-Assessments/Exams Free Text/Narrative Re-Assessment/Exam: 07/05/19 16:15: Patient had received 1 mg of Ativan initially and her pulse rate is still 120 but she feels improved. She had also been given Zofran 4 mg IV and her nausea has abated as well. Her troponin was negative. Her electrolytes appear to be normal. Her blood tests are reassuring. I am awaiting her d-dimer. I will give the patient 5 mg of metoprolol IV as well as another milligram of Ativan IV. 07/05/19 17:05: The patient's heart rate is still in the 95-110 range and she feels improved but is still somewhat tremulous with a blood pressure in the 170/ 110 range. I will again give the patient another 5 mg of metoprolol IV and Ativan 1 mg IV. D-dimer was normal. She is having alcohol withdrawal and chest pain. Her chest pain is essentially gone. She will need admission for continued close monitoring and appropriate treatment of her alcohol withdrawal and she will need serial troponins and cardiac monitoring. It is unclear if she will need more than a 2 midnight hospital stay at this point and a period of observation is needed and appropriate to determine this. I discussed this with Dr. Cardona and he is in agreement with this. I will discuss this with the patient. 07/05/19 17:20: The patient is in agreement with the plans for admission. I will place admission orders and Dr. Cardona will assume care of the patient at 7 AM on 07/06/2019. Departure - Departure Time of Disposition: 17:30 Disposition: Refer to Observation Condition: Fair (Stable) Clinical Impression: Alcohol withdrawal delirium, Uncontrolled hypertension Chest pain Qualifiers: Chest pain type: unspecified Qualified Code(s): R07.9 - Chest pain, unspecified Referrals: PCP,None [Ordering Only Provider] - Forms: ED Department Discharge Sepsis Event Note - Evaluation Sepsis Screening Result: No Definite Risk - Focused Exam Vital Signs: Vital Signs Temp Pulse Pulse Resp BP BP Pulse Ox 07/05/19 16:40 115 H 148/118 H 07/05/19 14:52 36.8 C 108 H 22 H 192/116 H 98 Date Exam was Performed: 07/05/19 Time Exam was Performed: 17:24 - My Orders Last 24 Hours: My Active Orders 07/05/19 15:42 Chest 1V Frontal [CR] Stat Sodium Chloride 0.9% [Saline Flush] 10 ml FLUSH ASDIRECTED PRN Peripheral IV Insertion Adult [OM.PC] Routine EKG 12 Lead [EK] Routine 07/05/19 15:43 EKG Documentation Completion [RC] ASDIRECTED 07/05/19 15:45 Sodium Chloride 0.9% [Normal Saline] 1,000 ml IV ASDIRECTED 07/05/19 17:08 Patient Status [ADT] Routine Assess Neurological Status [RC] ASDIRECTED CIWAA Assessment [RC] Q4H Cardiac Monitoring [RC] .As Directed Height and Weight [RC] UPON Notify Provider [RC] PRN Oxygen Therapy [RC] PRN Up With Assistance [RC] ASDIRECTED VTE/DVT Education [RC] Per Unit Routine Vital Signs [RC] Q1H Acetaminophen [Tylenol] 650 mg PO Q4H PRN Ondansetron [Zofran] 4 mg IV Q6H PRN Seizure Precautions [OM.PC] Routine Resuscitation Status Routine 07/05/19 17:09 Pulse Oximetry [RC] CONTINUOUS 07/05/19 17:14 Intake and Output [RC] QSHIFT 07/05/19 17:15 Folic Acid 1 mg PO DAILY LORazepam [Ativan] See Protocol IV ASDIRECTED Multivitamins [Tab-A-Demetrice] 1 tab PO DAILY Pantoprazole [ProTONIX IV] 40 mg IV DAILY Thiamine [Vitamin B-1] 100 mg Sodium Chloride 0.9% [Normal Saline] 50 ml IV DAILY 07/05/19 17:17 EKG Documentation Completion [RC] ASDIRECTED 07/05/19 17:20 Patient Status Manage Transfer [TRANSFER] Routine 07/05/19 22:00 TROPONIN I [CHEM] Routine 07/05/19 Dinner Clear Liquid Diet [DIET] 07/06/19 05:11 CBC WITH AUTO DIFF [HEME] AM COMPREHENSIVE METABOLIC PN,CMP [CHEM] AM TROPONIN I [CHEM] AM EKG 12 Lead [EK] AM - Assessment/Plan Last 24 Hours: My Active Orders 07/05/19 15:42 Chest 1V Frontal [CR] Stat Sodium Chloride 0.9% [Saline Flush] 10 ml FLUSH ASDIRECTED PRN Peripheral IV Insertion Adult [OM.PC] Routine EKG 12 Lead [EK] Routine 07/05/19 15:43 EKG Documentation Completion [RC] ASDIRECTED 07/05/19 15:45 Sodium Chloride 0.9% [Normal Saline] 1,000 ml IV ASDIRECTED 07/05/19 17:08 Patient Status [ADT] Routine Assess Neurological Status [RC] ASDIRECTED CIWAA Assessment [RC] Q4H Cardiac Monitoring [RC] .As Directed Height and Weight [RC] UPON Notify Provider [RC] PRN Oxygen Therapy [RC] PRN Up With Assistance [RC] ASDIRECTED VTE/DVT Education [RC] Per Unit Routine Vital Signs [RC] Q1H Acetaminophen [Tylenol] 650 mg PO Q4H PRN Ondansetron [Zofran] 4 mg IV Q6H PRN Seizure Precautions [OM.PC] Routine Resuscitation Status Routine 07/05/19 17:09 Pulse Oximetry [RC] CONTINUOUS 07/05/19 17:14 Intake and Output [RC] QSHIFT 07/05/19 17:15 Folic Acid 1 mg PO DAILY LORazepam [Ativan] See Protocol IV ASDIRECTED Multivitamins [Tab-A-Demetrice] 1 tab PO DAILY Pantoprazole [ProTONIX IV] 40 mg IV DAILY Thiamine [Vitamin B-1] 100 mg Sodium Chloride 0.9% [Normal Saline] 50 ml IV DAILY 07/05/19 17:17 EKG Documentation Completion [RC] ASDIRECTED 07/05/19 17:20 Patient Status Manage Transfer [TRANSFER] Routine 07/05/19 22:00 TROPONIN I [CHEM] Routine 07/05/19 Dinner Clear Liquid Diet [DIET] 07/06/19 05:11 CBC WITH AUTO DIFF [HEME] AM COMPREHENSIVE METABOLIC PN,CMP [CHEM] AM TROPONIN I [CHEM] AM EKG 12 Lead [EK] AM
[2019-07-05] MEDS ORDERED: Sodium Chloride 0.9% 10 ML Syringe FLUSH PRN (15:42)
[2019-07-05] MEDS ORDERED: Sodium Chloride 0.9% 500 ML IV ONE (15:43)
[2019-07-05] MEDS ORDERED: Ondansetron 4 MG/2 ML SDV IVPUSH ONE (15:43)
[2019-07-05] MEDS ORDERED: LORazepam 2 MG/ML SDV IVPUSH ONE ×3 (15:43→16:53)
[2019-07-05] MEDS: Sodium Chloride 0.9% 1,000 ML IV SCH ×2 (15:52→21:52)
[2019-07-05] MEDS ORDERED: Metoprolol Tartrate 5 MG/5 ML SDV IVPUSH ONE ×2 (16:24→16:53)
[2019-07-05] MEDS ORDERED: Metoprolol Succinate 25 MG Tab.ER PO ONE (17:06)
[2019-07-05] MEDS ORDERED: Ondansetron 4 MG/2 ML SDV IV PRN (17:08)
[2019-07-05] MEDS ORDERED: Pantoprazole 40 MG Vial IV SCH (17:15)
[2019-07-05] MEDS ORDERED: LORazepam 2 MG/ML SDV IV SCH (17:15)
[2019-07-05] MEDS ORDERED: Thiamine 100 MG in Sodium Chloride 0.9% 50 ML IV SCH (17:15)
--- NOTE | 2019-07-05 17:36 | CR ---
INDICATION: Chest pain. CHEST, ONE VIEW: An AP upright portable view of the chest was obtained and compared with PA view of 02/15/18. The left ventricle may be slightly more prominent than on the previous examination, but there is a change in the positioning - AP versus PA. The aorta is slightly tortuous with minimal calcification in the arch area. Overlying EKG leads are noted. An active infiltrate or effusion was not identified. Compared with a portable AP view of 11/27/15, the heart size does not appear changed and may simply be normal for this specific patient. IMPRESSION: 1. ASD aorta, question minimal prominence of the heart - upper limits of normal possible. However, the inspiration is not full and the positioning is AP which would increase prominence of the heart size slightly. 2 No definite acute process. MTDD
[2019-07-05] MEDS ORDERED: Folic Acid 1 MG Tab ONE (17:53)
[2019-07-05] MEDS ORDERED: Pantoprazole 40 MG Vial ONE (17:53)
[2019-07-05] MEDS: Multivitamin Tab PO SCH (18:11)
[2019-07-05] MEDS: Folic Acid 1 MG Tab PO SCH (18:11)
[2019-07-05] MEDS: Acetaminophen 325 MG Tab PO PRN (19:59)
[2019-07-05] MEDS ORDERED: Zolpidem 10 MG Tab PO ONE (20:30)
--- NOTE | 2019-07-05 22:06 | HP ---
ADMISSION DATE: 07/05/2019 CHIEF COMPLAINT: Chest pain, acute alcohol withdrawal. HISTORY OF PRESENT ILLNESS: Ms. Youssef is a 59-year-old woman with a history of alcoholism, history of chemical dependency, who reports she started drinking and just 5 years ago. She drank heavily for 2 years, then quit with the help of Antabuse and was dry for the past 3 years. She lost her dog 2 days ago and started drinking again, drinking a 5th of vodka in the past 2 days. She developed left anterior chest pain and came into the emergency room because of this. She was evaluated by Dr. Green, found to be withdrawing from alcohol. Chest evaluation did not suggest cardiac causes for her chest pain. Chest x-ray was done and no acute process seen. The patient was treated for alcohol withdrawal with IV lorazepam and admitted for observation. The patient states that her chest pain now is nearly gone rating it at a 2/10. The patient describes 2 prior episodes of chest pain, 1 in 2004 where she underwent angiogram at [facility]. She states that at that time, they told her clot might have passed, but she had needed no intervention, stents, etc. She had a 2nd episode of chest pain in 2008 where she was treated at [facility]. She also had an angiogram which she states was normal. PAST MEDICAL HISTORY: Alcoholism as described above. She also has been on chronic hydrocodone b.i.d. for fibromyalgia. She is status post gastric bypass in 1997. She has had repair of an umbilical hernia, cholecystectomy, ORIF of left wrist fracture, ORIF of left long finger fracture, ORIF of a right ankle fracture with subsequent revision and fusion. She is 1, para 1 with normal delivery. She had a transfusion in 2010 of 2 units at the time of her ankle surgery. She has never had jaundice or hepatitis. She has had anxiety, depression treated for the past 20 years. She had significant iron deficiency and B12 deficiency post her gastric bypass. She reports past history also listed as bipolar disorder, osteoporosis, osteoarthritis from left hip dysplasia. She has hypertension. MEDICATIONS: 1. Vitamin B complex 50 mL liquid daily. 2. Triazolam 0.25 mg at bedtime. 3. Multiple vitamin 1 daily. 4. Metoprolol 25 mg daily. 5. Lamotrigine listed at 100 mg at bedtime p.r.n. She, however, describes butterfly rash as an allergy to this medication. 6. Hydrocodone 7.5/325, 1 b.i.d. 7. Iron 325 mg daily. 8. Baclofen 10 mg daily. 9. Aspirin 81 mg daily. 10.Alprazolam 0.5 mg b.i.d. ALLERGIES: Extensive allergy list including tramadol, Lyrica, Augmentin, NSAIDs, methotrexate, Toradol, clonidine, Abilify, sumatriptan. HABITS: Nonsmoker for the past 20 years. See alcohol history. FAMILY HISTORY: The patient's father at age 85 of abdominal aneurysm. Mother at age 59 of cholangiocarcinoma. 1 sister has alcoholism. The father has had alcoholism. SOCIAL HISTORY: The patient has been for 20 years. She worked at [employer], but has not worked since 2009. Her works at [employer]. She has 1 daughter, age 33, living in [place] and 2 granddaughters. REVIEW OF SYSTEMS: GENERAL: No seizure, syncope, or recent significant weight change. SKIN: Negative for rash. HEENT: No recent change in hearing or vision. No sore throat or URI. No cough or purulent sputum. No palpitations. She does have the chest pain as mentioned that is now improved. No abdominal pain, nausea, or diarrhea. No hematuria or UTI symptoms. No joint inflammation, swelling, or skin rash. PHYSICAL EXAMINATION: GENERAL: She is alert and comfortable. HEENT: Shows clear TMs. Pupils are equal and reactive. Oropharynx clear. NECK: Supple. Thyroid is normal. LUNGS: Clear to the bases. BACK: Straight, nontender. HEART: Regular. There is a 2/6 systolic murmur across the precordium. Chest wall is tender at the left 3rd sternocostal joint reproducing her pain. ABDOMEN: Normal bowel sounds. Soft. She has slight tenderness in the area of her cholecystectomy scar. There are well-healed right upper quadrant diagonal cholecystectomy scars and a midline vertical gastric bypass scar. EXTREMITIES: Warm, well perfused. Good pulses. No edema. There is a scar over right ankle. 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 LABORATORY: White count is 9500, hemoglobin 13.8. Protime 10, D-dimer 0.51. Electrolytes normal. BUN is 14, creatinine 0.6, AST 33, alkaline phosphatase 124. Alcohol level less than 0.03. ASSESSMENT: A 59-year-old woman with; 1. Atypical left chest pain consistent with chest wall pain. 2. Acute on chronic alcoholism with withdrawal symptoms. 3. Chemical dependency with previous alcohol use, current hydrocodone use and triazolam use at bedtime. 4. History of bipolar disorder. 5. Status post gastric bypass with previous nutritional deficiencies as a result. 6. Hypertension. PLAN: She is admitted to the hospital. We will place her on the CIWA protocol, re-evaluate her chest pain and advance diet as tolerated. /[id number] TORIE/MARY
[2019-07-06] MEDS: Acetaminophen 325 MG Tab PO PRN ×2 (01:42→06:26)
[2019-07-06] MEDS: LORazepam 1 MG Tab PO PRN ×2 (02:19→06:28)
[2019-07-06] MEDS: Folic Acid 1 MG Tab PO SCH (08:40)
[2019-07-06] MEDS: Multivitamin Tab PO SCH (08:40)
[2019-07-06] MEDS ORDERED: ASPIRIN 81 MG PO SCH (09:00)
[2019-07-06] MEDS ORDERED: Non-Formulary Medication 1 Each (Metoprolol Succinate [Toprol Xl] 25 MG) PO SCH (09:00)
[2019-07-06 10:17] VITALS: BP 148/98; PULSE 91
--- NOTE | 2019-07-07 04:41 | DISCH ---
DISCHARGE DATE: 07/06/2019 PRIMARY FINAL DIAGNOSIS: 1. Left anterior chest wall pain. 2. Acute on chronic alcoholism. 3. Chemical dependency. 4. Fibromyalgia. 5. History of bipolar disorder. OTHER DIAGNOSES: Status post gastric bypass procedure. OPERATIONS: None. COMPLICATIONS: None. HOSPITAL COURSE: Lola Youssef is a 59-year-old woman with a history of alcoholism, who is dry for three years and started drinking two days before admission. She came to the emergency room with left anterior chest pain. She was admitted to cardiac. Troponin and EKG were done, were unremarkable. She was admitted for observation and put on the CIWA protocol. Repeat EKG and cardiac enzymes were negative and her chest pain resolved. She is discharged to home in improved condition. MEDICATIONS: 1. Vitamin B complex liquid 50 mL daily. 2. Triazolam 0.25 mg at bedtime. 3. Multiple vitamin 1 daily. 4. [place] 7.5/325 one b.i.d. 5. Iron sulfate 1 tab daily. 6. Metoprolol ER 25 mg daily. 7. Aspirin 81 mg daily. She is to have follow up with her regular doctor in 2 weeks p.r.n. and call should there be questions or problems prior to that time. /[id number] TORIE/MARY
== END 2019-07-06 09:25 | disposition home or self-care (01) ==
LOC: FB.ED 14:48 → FB.ICU 17:20
PROVIDERS: ADMIT Emergency Medicine; ATTEND Family Medicine
DX: R07.89 Other chest pain (principal); F11.20 Opioid dependence, uncomplicated; F10.239 Alcohol dependence with withdrawal, unspecified; I10 Essential (primary) hypertension; E63.9 Nutritional deficiency, unspecified; F31.9 Bipolar disorder, unspecified; I25.2 Old myocardial infarction; F41.9 Anxiety disorder, unspecified; Z98.890 Other specified postprocedural states; Z88.5 Allergy status to narcotic agent; Z88.8 Allergy status to other drugs, medicaments and biological substances; Z79.82 Long term (current) use of aspirin; Z79.899 Other long term (current) drug therapy; Z81.1 Family history of alcohol abuse and dependence; Z98.84 Bariatric surgery status; Y90.1 Blood alcohol level of 20-39 mg/100 ml
CPT/HCPCS: 36415; 71045; 80053; 83735; 84484; 85025; 85379; 85610; 85730; 93005; 93010; 96361; 96374; 96375; 96376; 99217; 99218; 99284; 99285; A9270; C9113; G0480; J2060; J2405; J3411; J3490; J7030; J7050

== ENCOUNTER → 2020-02-12 | Day surgery (SDC) | payer MEDICARE ==
[~2020-02-12] MED LIST: Glucagon,Human Recombinant 1 MG Vial IVPUSH ONE; LORazepam 2 MG/ML SDV IVPUSH STA; Lactated Ringers 1,000 ML IV ONE; Lactated Ringers 1,000 ML IV SCH; Lidocaine 2% 5 ML SDV IV ONE; Midazolam 1 MG/ML 2 ML SDV IV ONE; Propofol 200 MG/20 ML SDV IV ONE; Sodium Chloride 0.9% 10 ML Syringe FLUSH PRN
--- NOTE | 2020-02-12 22:47 | EDM.PDOC ---
ED HPI GENERAL MEDICAL PROBLEM - General Stated Complaint: CHOKING Time Seen by Provider: 02/12/20 22:25 Source of Information: Reports: Patient History Limitations: Reports: No Limitations - History of Present Illness INITIAL COMMENTS - FREE TEXT/NARRATIVE: Patient presented to the ED chocking with a watermelon which she swallowed at about 2130 and now it's stuck in her throat. She tried removing it with her fingers but she couldn't. She also tried drinking water but she regurgitated it back. She is hyperventilating when she arrived. Denies any dyspnea, N/V. - Related Data Allergies Allergy/AdvReac Type Severity Reaction Status Date / Time sumatriptan [From Imitrex] Allergy Severe Airway Verified 02/12/20 23:56 Tightness sumatriptan succinate Allergy Severe Airway Verified 02/12/20 23:56 [From Imitrex] Tightness amoxicillin trihydrate Allergy Rash Verified 02/12/20 23:56 [From Augmentin] aripiprazole [From Abilify] Allergy Swelling, Verified 02/12/20 23:57 Suicidal Thoughts clonidine Allergy Headache Verified 02/12/20 23:57 ketorolac tromethamine Allergy Tachycardia Verified 02/12/20 23:56 [From Toradol] methotrexate Allergy Swelling Verified 02/12/20 23:56 NSAIDS (Non-Steroidal Allergy Tachycardia Verified 02/12/20 23:56 Anti-Inflamma potassium clavulanate Allergy Rash Verified 02/12/20 23:56 [From Augmentin] pregabalin [From Lyrica] Allergy Swelling Verified 02/12/20 23:58 of Face and Legs tramadol Allergy Seizure Verified 02/12/20 23:56 Home Meds: Home Meds Aspirin [[place] Aspirin] 81 mg PO DAILY 02/02/17 [History] Multivitamin [Multi-Vitamin Daily] 1 tab PO DAILY 12/24/17 [History] Vit B Complex No.12/Niacin(B3) [Rabano Yodado Liquid] 50 mg SL DAILY 06/08/18 [History] Ferrous Sulfate [Iron] 325 mg PO DAILY 07/05/19 [History] Hydrocodone/Acetaminophen [[place] 7.5-325 Tablet] 1 tab PO BID PRN 07/05/19 [History] Triazolam 0.25 mg PO BEDTIME PRN 02/05/20 [History] Past Medical History Cardiovascular History: Reports: Afib, Hypertension, [place] Gastrointestinal History: Reports: Hiatal Hernia Genitourinary History: Reports: Renal Calculus Other Genitourinary History: interstitial cystitis LOGISTICS LEAD History: Reports: Other LOGISTICS LEAD History: Musculoskeletal History: Reports: Arthritis, Back Pain, Chronic, Fracture, Osteoporosis Other Musculoskeletal History: hx fx R asher/ankle with surgery, L wrist fx with surgery Neurological History: Reports: Migraines, Seizure Psychiatric History: Reports: Addiction, Anxiety, Depression, Emotional Problems Other Psychiatric History: hx etoh abuse, has been in tx x 1 Hematologic History: Reports: Anemia, Blood Transfusion(s), Iron Deficiency - Infectious Disease History Infectious Disease History: Reports: Chicken Pox, Measles, MRSA, Mumps - Past Surgical History HEENT Surgical History: Reports: Adenoidectomy, Tonsillectomy GI Surgical History: Reports: Bariatric Procedure, Cholecystectomy, Colonoscopy, EGD, Hernia Repair/Other Female Surgical History: Reports: Lithotripsy/ESWL, Ureteral Stent Musculoskeletal Surgical History: Reports: ORIF, Shoulder Surgery Social & Family History - Family History Family Medical History: Noncontributory - Caffeine Use Caffeine Use: Reports: Coffee - Living Situation & Occupation Living situation: Reports: Occupation: Disabled ED ROS GENERAL - Review of Systems Review Of Systems: See Below Constitutional: Reports: No Symptoms HEENT: Reports: Other (choking) Respiratory: Reports: No Symptoms Cardiovascular: Reports: No Symptoms Endocrine: Reports: No Symptoms GI/Abdominal: Reports: No Symptoms, Mucous in Stool Musculoskeletal: Reports: No Symptoms Skin: Reports: No Symptoms Neurological: Reports: No Symptoms Psychiatric: Reports: No Symptoms ED EXAM, GENERAL - Physical Exam Exam: See Below Exam Limited By: No Limitations General Appearance: Alert, No Apparent Distress Ears: Normal External Exam Nose: Normal Inspection, Normal Mucosa Throat/Mouth: Normal Inspection, Normal Lips Head: Atraumatic, Normocephalic Neck: Normal Inspection Respiratory/Chest: No Respiratory Distress, Lungs Clear, Normal Breath Sounds Cardiovascular: Normal Peripheral Pulses, Regular Rate, Rhythm, No Edema, No Gallop GI/Abdominal: Normal Bowel Sounds, Soft, Non-Tender, No Organomegaly Back Exam: Normal Inspection, Full Range of Motion Extremities: Normal Inspection, Normal Range of Motion Course - Vital Signs Text/Narrative:: Ativan 1 mg IV Glucagon 1 mg IV Surgery consult with DR Bernal who will do an endoscopic removal of the watermelon Last Recorded V/S: Last Vital Signs Temp 36.6 C 02/13/20 00:12 Pulse 93 02/13/20 00:55 Resp 16 02/13/20 00:55 BP 129/92 H 02/13/20 00:55 Pulse Ox 100 02/13/20 00:55 - Orders/Labs/Meds Orders: Active Orders 24 hr Category Date Time Status Patient Status [ADT] Routine ADT 02/12/20 23:30 Active Patient to Empty Bladder [RC] ASDIRECTED Care 02/12/20 23:35 Active Ready for Discharge [RC] PER UNIT ROUTINE Care 02/13/20 00:20 Active Verify Patient Consent Obtain [RC] ASDIRECTED Care 02/12/20 23:36 Active Nothing Per Oral Diet [DIET] Diet 02/12/20 Dinner Ordered Sodium Chloride 0.9% [Saline Flush] Med 02/12/20 22:02 Active 10 ml FLUSH ASDIRECTED PRN Saline Lock Insert [OM.PC] Routine Oth 02/12/20 22:02 Ordered Resuscitation Status Routine Resus Stat 02/12/20 23:35 Ordered Medication Orders Sodium Chloride (Saline Flush) 10 ml FLUSH ASDIRECTED PRN PRN Reason: Keep Vein Open Last Admin: 02/12/20 22:22 Dose: 10 ml Documented by: MICHAEL Meds: Medications Generic Name Dose Route Start Last Admin Trade Name Freq PRN Reason Stop Dose Admin Sodium Chloride 10 ml 02/12/20 22:02 02/12/20 22:22 Saline Flush FLUSH 10 ml ASDIRECTED PRN Administration Keep Vein Open Discontinued Medications Generic Name Dose Route Start Last Admin Trade Name Freq PRN Reason Stop Dose Admin Glucagon 1 mg 02/12/20 22:03 02/12/20 22:17 Glucagen IVPUSH 02/12/20 22:04 1 mg ONETIME ONE Administration Lorazepam 1 mg 02/12/20 22:03 02/12/20 22:12 Ativan IVPUSH 02/12/20 22:04 1 mg NOW STA Administration Departure - Departure Time of Disposition: 22:00 Disposition: Home, Self-Care 01 Condition: Good Clinical Impression: Choking due to food in larynx - Discharge Information Sepsis Event Note (ED) - Focused Exam Vital Signs: Vital Signs Temp Pulse Resp BP Pulse Ox 02/13/20 00:55 93 16 129/92 H 100 02/13/20 00:40 81 16 123/100 H 96 02/13/20 00:25 93 16 125/92 H 94 L 02/13/20 00:12 36.6 C 100 16 129/85 96 02/12/20 23:00 35.9 C L 108 H 18 138/109 H 98 02/12/20 22:05 36.2 C 108 H 22 H 150/114 H 98 - My Orders Last 24 Hours: My Active Orders 02/12/20 22:02 Sodium Chloride 0.9% [Saline Flush] 10 ml FLUSH ASDIRECTED PRN Saline Lock Insert [OM.PC] Routine - Assessment/Plan Last 24 Hours: My Active Orders 02/12/20 22:02 Sodium Chloride 0.9% [Saline Flush] 10 ml FLUSH ASDIRECTED PRN Saline Lock Insert [OM.PC] Routine
--- NOTE | 2020-02-13 00:18 | PCM.OPNOTE ---
- General Post-Op/Procedure Note Date of Surgery/Procedure: 02/13/20 Operative Procedure(s): EGD with removal of esophageal foreign body Findings: Watermelon piece lodged in upper esophagus with no stricture seen Pre Op Diagnosis: Foreign body in esophagus Post-Op Diagnosis: Same Anesthesia Technique: MAC Primary Surgeon: Santiago Bernal Pathology: none EBL in mLs: 0 Complications: None Condition: Good
--- NOTE | 2020-02-13 02:27 | OR ---
DATE OF OPERATION: 02/12/2020 SURGEON: Santiago Bernal MD PREOPERATIVE DIAGNOSIS: Foreign body (food) in esophagus. POSTOPERATIVE DIAGNOSIS: Foreign body (food) in esophagus. TEST PERFORMED: Esophagogastroduodenoscopy with removal of esophageal foreign body. INDICATIONS FOR SURGERY: This 59-year-old female noted a watermelon lodged in the upper portion of her esophagus. This caused an obstruction and did not become dislodged despite prolonged observation. So EGD for removal of this is planned. FINDINGS: In the upper portion of the patient's esophagus, there was a piece of partially digested watermelon. It was soft and easily pushed with the gastroscope down into the jejunum. No stricture was seen. No evidence of intrinsic or extrinsic mass was identified in the esophagus. The patient has had a prior gastric bypass, but no stricturing was noted at the GE junction or at the gastrojejunal anastomosis, and no ulcerations were seen. PROCEDURE IN DETAIL: The patient was taken to the procedure room. She was given intravenous sedation; and with her in the left lateral decubitus position, the Olympus gastroscope was advanced through the mouth guard into the oral cavity. Under direct visualization, it was then advanced through the oropharynx past the cricopharyngeus and into the upper esophagus. There the piece of watermelon was readily identified, and carefully the scope was advanced easily pushing the watermelon down through the esophagus and then on into the gastric pouch. Further manipulation then advanced the food bolus down into the jejunum. No stricturing was seen at any point in the region of the gastric bypass or in the esophagus. Examination of the structures after the bolus had been removed, showed no sign of injury or other complication. The gastroscope was then removed, and the patient was awakened and taken from the procedure room in satisfactory condition. ESTIMATED BLOOD LOSS: Zero. COMPLICATIONS: None. PROGNOSIS: Good. /[id number] BRADLY/MARY
--- NOTE | 2020-02-13 03:19 | HP ---
ADMISSION DATE: 02/12/2020 HISTORY OF PRESENT ILLNESS: This 59-year-old female presented to the emergency room acutely after swallowing some watermelon. She felt that the watermelon stuck in the upper portion of her esophagus and feels as if it is lodged there. Since this happened, she has been unable to swallow any liquids and much of her saliva also does not go down. She feels a pressure feeling in the upper portion of the mid aspect of her chest. She has not had any difficulty breathing associated with this and notes a slight hoarse voice, but no other change. The patient denies ever having anything similar to this occur in the past. She denies any known symptoms of dysphagia or acid reflux symptoms. PAST MEDICAL HISTORY: Does include a history of gastric bypass. She did undergo an EGD in the late because of some dysphagia after that surgical procedure, but has not had any problems since then. Other previous surgeries include cholecystectomy, hernia repair, colonoscopy, along with tonsillectomy. She has a history of atrial fibrillation and hypertension. She says that she had some type of cardiac procedure performed, although does not remember exactly what this was, but notes that she did not have any valve replacement surgery. She has also had multiple extremity surgeries with fracture repair in her leg and wrist. CURRENT MEDICATIONS: Include: 1. Vitamins. 2. Aspirin. 3. Iron supplements. 4. She says she has taken Toprol in the past, but states she is not taking this at this time. ALLERGIES: She describes allergies to NSAIDs, but medical record also includes allergies to sumatriptan, amoxicillin, clonidine, and methotrexate. FAMILY HISTORY: Noncontributory. REVIEW OF SYSTEMS: She denies any recent shortness of breath, cough, or fever. She states she has not been exposed to any known source of virus. She has not been experiencing any chest pain, palpitations, and she states her GI system has been working well. PHYSICAL EXAMINATION: GENERAL: The patient is alert adult female. She is in no acute distress. Respirations are easy and nonlabored. Her voice is clear. HEENT: Head is normocephalic. No scleral icterus. No cervical masses or swelling. Examination of the throat shows no evidence of foreign body or trauma. HEART: Regular. LUNGS: Clear. ABDOMEN: Soft and nontender. IMPRESSION: Foreign body of the esophagus (watermelon). RECOMMENDATIONS: EGD for removal of esophageal foreign body. I have discussed the proposed endoscopic procedure with the patient. She agrees to proceed accepting risks. /[id number] BRADLY/MARY
[2020-02-13 04:21] VITALS: BP 129/92; PULSE 93
== END | disposition home or self-care (01) ==
LOC: FB.ED 22:01 → FB.SDS 23:04
PROVIDERS: ATTEND Surgery
DX: T18.128A Food in esophagus causing other injury, initial encounter (principal); I10 Essential (primary) hypertension; F41.9 Anxiety disorder, unspecified; F32.9 Major depressive disorder, single episode, unspecified; Z98.84 Bariatric surgery status; Z98.890 Other specified postprocedural states; Z88.8 Allergy status to other drugs, medicaments and biological substances; Z88.0 Allergy status to penicillin; Z88.5 Allergy status to narcotic agent; Z79.899 Other long term (current) drug therapy; Z90.49 Acquired absence of other specified parts of digestive tract
CPT/HCPCS: 00731-QZ; 96374; 96375; 99283-25; J1610; J2001; J2060; J2250; J2704; J7120

== ENCOUNTER → 2020-02-29 | Day surgery (SDC) | payer MEDICARE ==
[~2020-02-29] MED LIST changes: -Glucagon,Human Recombinant 1 MG Vial IVPUSH ONE; -LORazepam 2 MG/ML SDV IVPUSH STA; -Lactated Ringers 1,000 ML IV ONE; -Lactated Ringers 1,000 ML IV SCH; -Sodium Chloride 0.9% 10 ML Syringe FLUSH PRN
--- NOTE | 2020-02-29 22:53 | EDM.PDOC ---
ED HPI GENERAL MEDICAL PROBLEM - General Stated Complaint: CHOKING Time Seen by Provider: 02/29/20 22:50 Source of Information: Reports: Patient History Limitations: Reports: No Limitations - History of Present Illness INITIAL COMMENTS - FREE TEXT/NARRATIVE: Lola swallowed a hot dog,and it feels stuck inher esophagus. She is not able to swallow even water.She feels that she is choking No aspiration reported. No vomitig.This happend also a few days ago. - Related Data Allergies Allergy/AdvReac Type Severity Reaction Status Date / Time sumatriptan [From Imitrex] Allergy Severe Airway Verified 03/05/20 04:43 Tightness sumatriptan succinate Allergy Severe Airway Verified 03/05/20 04:43 [From Imitrex] Tightness amoxicillin trihydrate Allergy Rash Verified 03/05/20 04:43 [From Augmentin] aripiprazole [From Abilify] Allergy Swelling, Verified 03/05/20 04:43 Suicidal Thoughts clonidine Allergy Headache Verified 03/05/20 04:43 ketorolac tromethamine Allergy Tachycardia Verified 03/05/20 04:43 [From Toradol] methotrexate Allergy Swelling Verified 03/05/20 04:43 NSAIDS (Non-Steroidal Allergy Tachycardia Verified 03/05/20 04:43 Anti-Inflamma potassium clavulanate Allergy Rash Verified 03/05/20 04:43 [From Augmentin] pregabalin [From Lyrica] Allergy Swelling Verified 03/05/20 04:43 of Face and Legs tramadol Allergy Seizure Verified 03/05/20 04:43 Home Meds: Home Meds Aspirin [[place] Aspirin] 81 mg PO DAILY 02/02/17 [History] Multivitamin [Multi-Vitamin Daily] 1 tab PO DAILY 12/24/17 [History] Vit B Complex No.12/Niacin(B3) [Rabano Yodado Liquid] 50 mg SL DAILY 06/08/18 [History] Ferrous Sulfate [Iron] 325 mg PO DAILY 07/05/19 [History] Hydrocodone/Acetaminophen [[place] 7.5-325 Tablet] 1 tab PO BID PRN 07/05/19 [History] Triazolam 0.25 mg PO BEDTIME PRN 07/05/19 [History] Potassium Chloride [Klor-Con M20] 40 meq PO TID #6 tab.er 03/04/20 [Rx] Past Medical History HEENT History: Reports: Other (See Below) Other HEENT History: Nasal bone fracture. Cardiovascular History: Reports: Afib, Hypertension, [place] Other Cardiovascular History: History of atrial fibrillation. Atypical chest pain. Gastrointestinal History: Reports: Hiatal Hernia Other Gastrointestinal History: History of liver dysfunction. Genitourinary History: Reports: Renal Calculus Other Genitourinary History: interstitial cystitis X RAY PHYSICIAN History: Reports: Other X RAY PHYSICIAN History: Musculoskeletal History: Reports: Arthritis, Back Pain, Chronic, Fracture, Osteoporosis Other Musculoskeletal History: hx fx R asher/ankle with surgery, L wrist fx with surgery Neurological History: Reports: Migraines, Seizure Psychiatric History: Reports: Addiction, Anxiety, Depression, Emotional Problems Other Psychiatric History: hx etoh abuse, has been in tx x 1 Endocrine/Metabolic History: Reports: Hypokalemia Hematologic History: Reports: Anemia, Blood Transfusion(s), Iron Deficiency - Infectious Disease History Infectious Disease History: Reports: Chicken Pox, Measles, MRSA, Mumps - Past Surgical History HEENT Surgical History: Reports: Adenoidectomy, Tonsillectomy GI Surgical History: Reports: Bariatric Procedure, Cholecystectomy, Colonoscopy, EGD, Hernia Repair/Other Female Surgical History: Reports: Lithotripsy/ESWL, Ureteral Stent Musculoskeletal Surgical History: Reports: ORIF, Shoulder Surgery Social & Family History - Family History Family Medical History: Noncontributory - Caffeine Use Caffeine Use: Reports: Coffee - Living Situation & Occupation Living situation: Reports: Occupation: Disabled ED ROS GENERAL - Review of Systems Review Of Systems: Comprehensive ROS is negative, except as noted in HPI. ED EXAM, GI/ABD - Physical Exam Exam: See Below Exam Limited By: No Limitations General Appearance: Alert, WD/WN Head: Atraumatic Neck: Normal Inspection, Supple, Tender Lateral Respiratory/Chest: No Respiratory Distress, Lungs Clear Psychiatric: Anxious Course - Vital Signs Last Recorded V/S: Last Vital Signs Temp 97.9 F 02/29/20 23:10 Pulse 98 03/01/20 00:40 Resp 18 03/01/20 00:40 BP 135/91 H 03/01/20 00:40 Pulse Ox 96 03/01/20 00:40 - Orders/Labs/Meds Meds: Medications Discontinued Medications Generic Name Dose Route Start Last Admin Trade Name Freq PRN Reason Stop Dose Admin Lidocaine 5 ml 02/29/20 23:01 Xylocaine-Mpf 2% IV 02/29/20 23:02 .STK-MED ONE Midazolam HCl 2 mg 02/29/20 23:01 Versed 1 Mg/Ml IV 02/29/20 23:02 .STK-MED ONE Propofol 40 mg 02/29/20 23:01 Diprivan 20 Ml IV 02/29/20 23:02 .STK-MED ONE Departure - Departure Time of Disposition: 19:14 Disposition: Home, Self-Care 01 Clinical Impression: Choking due to food in larynx - Discharge Information - Problem List & Annotations (1) Foreign body in esophagus SNOMED Code(s): 16914879 Code(s): T18.108A - UNSP FOREIGN BODY IN ESOPHAGUS CAUSING OTH INJURY, INIT Status: Acute Qualifiers: Encounter type: initial encounter Qualified Code(s): T18.108A - Unspecified foreign body in esophagus causing other injury, initial encounter - Problem List Review Problem List Initiated/Reviewed/Updated: Yes - Assessment/Plan Plan: Consult Dr Thomason
--- NOTE | 2020-02-29 23:48 | PCM.OPNOTE ---
- General Post-Op/Procedure Note Date of Surgery/Procedure: 02/29/20 Operative Procedure(s): EGJ Findings: Piece of hotdog Pre Op Diagnosis: Foreign Body Esophagus Post-Op Diagnosis: Same Anesthesia Technique: MAC Primary Surgeon: Jose Luis Thomason Anesthesia Provider: Sima Quezada EBL in mLs: 0 Complications: None Condition: Good
[2020-03-01 02:11] VITALS: PULSE 98
[2020-03-01 02:23] VITALS: BP 135/91
--- NOTE | 2020-03-01 13:11 | OR ---
DATE OF OPERATION: 02/29/2020 SURGEON: Jose Luis Thomason MD PREOPERATIVE DIAGNOSIS: Foreign body, esophagus. POSTOPERATIVE DIAGNOSIS: Foreign body, esophagus. PROCEDURE: Esophagogastroduodenoscopy. ANESTHESIA: IV sedation. HISTORY: This patient was in the emergency room with a piece of hot dog stuck in her esophagus for a few hours. She was unable to swallow and having discomfort. She had this happen a couple weeks ago with a piece of watermelon that was removed endoscopically. I recommend proceeding with upper endoscopy again. Risks and complications were reviewed and consent obtained. PROCEDURE IN DETAIL: The patient was brought to the procedure room, where she was placed on her left side and IV sedation administered. Oral bite block was placed and the upper endoscope advanced into the esophagus under direct vision without difficulty. Vocal cords were viewed and were normal. The scope was slowly passed through the esophagus into the gastric remnant, where the piece of hot dog was visualized. This then passed into the jejunal limb. The piece of hot dog was approximately 3 cm in length. The squamocolumnar junction was normal. Gastric remnant that remained was normal. The gastrojejunostomy anastomosis was normal. There were no anatomic abnormalities present that would account for the food getting stuck, other than the piece of food being large. Air was removed from the stomach, and the scope withdrawn through the remaining esophagus, which all appeared normal. The scope was removed. The patient returned to recovery in stable condition. /[id number] JAMILAH/MARY
== END | disposition home or self-care (01) ==
LOC: FB.ED 22:44 → FB.SDS 23:00
PROVIDERS: ATTEND Surgery
DX: T18.108A Unspecified foreign body in esophagus causing other injury, initial encounter (principal); I48.91 Unspecified atrial fibrillation; I10 Essential (primary) hypertension; I25.2 Old myocardial infarction; F41.9 Anxiety disorder, unspecified; F32.9 Major depressive disorder, single episode, unspecified; Z88.8 Allergy status to other drugs, medicaments and biological substances; Z88.1 Allergy status to other antibiotic agents; Z79.82 Long term (current) use of aspirin; Z79.899 Other long term (current) drug therapy; Z88.5 Allergy status to narcotic agent; Z90.89 Acquired absence of other organs; Z90.49 Acquired absence of other specified parts of digestive tract; Z98.890 Other specified postprocedural states
CPT/HCPCS: 00731-QZ; J2001; J2250; J2704

== ENCOUNTER 2020-03-04 19:29 | Emergency (ER) | payer MEDICARE ==
[2020-03-04] MEDS ORDERED: Sodium Chloride 0.9% 10 ML Syringe FLUSH PRN (19:46)
[2020-03-04] MEDS ORDERED: Metoprolol Succinate 50 MG Tab.ER PO ONE ×2 (19:47→22:29)
[2020-03-04] MEDS ORDERED: Potassium Chloride 20 MEQ Tab.ER PO ONE (20:38)
[2020-03-04] MEDS ORDERED: hydrALAZINE 20 MG/ML SDV IVPUSH ONE (20:51)
[2020-03-04] MEDS ORDERED: Aspirin 81 MG Tab.Chew PO ONE (21:30)
[2020-03-04] MEDS ORDERED: Nitroglycerin 0.4 MG Tab.SL SL PRN (21:30)
--- NOTE | 2020-03-04 21:30 | EDM.PDOC ---
ED HPI GENERAL MEDICAL PROBLEM - General Stated Complaint: HIGH BLOOD PRESSURE; SHAKING; WEAK Time Seen by Provider: 03/04/20 19:45 Source of Information: Reports: Patient History Limitations: Reports: No Limitations - History of Present Illness INITIAL COMMENTS - FREE TEXT/NARRATIVE: Patient presented to the ED because of an elevated BP. She also c/o headache, chest pain, There is no nausea, vomiting or diaphoresis. She is supposed to take metoprolol for her HTN and AFIB but decided to stop taking it because her BP is normal anyway. - Related Data Allergies Allergy/AdvReac Type Severity Reaction Status Date / Time sumatriptan [From Imitrex] Allergy Severe Airway Verified 02/12/20 23:56 Tightness sumatriptan succinate Allergy Severe Airway Verified 02/12/20 23:56 [From Imitrex] Tightness amoxicillin trihydrate Allergy Rash Verified 02/12/20 23:56 [From Augmentin] aripiprazole [From Abilify] Allergy Swelling, Verified 02/12/20 23:57 Suicidal Thoughts clonidine Allergy Headache Verified 02/12/20 23:57 ketorolac tromethamine Allergy Tachycardia Verified 02/12/20 23:56 [From Toradol] methotrexate Allergy Swelling Verified 02/12/20 23:56 NSAIDS (Non-Steroidal Allergy Tachycardia Verified 02/12/20 23:56 Anti-Inflamma potassium clavulanate Allergy Rash Verified 02/12/20 23:56 [From Augmentin] pregabalin [From Lyrica] Allergy Swelling Verified 02/12/20 23:58 of Face and Legs tramadol Allergy Seizure Verified 02/12/20 23:56 Home Meds: Home Meds Aspirin [[place] Aspirin] 81 mg PO DAILY 02/02/17 [History] Multivitamin [Multi-Vitamin Daily] 1 tab PO DAILY 12/24/17 [History] Vit B Complex No.12/Niacin(B3) [Rabano Yodado Liquid] 50 mg SL DAILY 06/08/18 [History] Ferrous Sulfate [Iron] 325 mg PO DAILY 07/05/19 [History] Hydrocodone/Acetaminophen [[place] 7.5-325 Tablet] 1 tab PO BID PRN 07/05/19 [History] Triazolam 0.25 mg PO BEDTIME PRN 07/05/19 [History] Potassium Chloride [Klor-Con M20] 40 meq PO TID #6 tab.er 03/04/20 [Rx] Past Medical History HEENT History: Reports: Other (See Below) Other HEENT History: Nasal bone fracture. Cardiovascular History: Reports: Afib, Hypertension, [place] Other Cardiovascular History: History of atrial fibrillation. Atypical chest pain. Gastrointestinal History: Reports: Hiatal Hernia Other Gastrointestinal History: History of liver dysfunction. 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 History: Musculoskeletal History: Reports: Arthritis, Back Pain, Chronic, Fracture, Osteoporosis Other Musculoskeletal History: hx fx R asher/ankle with surgery, L wrist fx with surgery Neurological History: Reports: Migraines, Seizure Psychiatric History: Reports: Addiction, Anxiety, Depression, Emotional Problems Other Psychiatric History: hx etoh abuse, has been in tx x 1 Endocrine/Metabolic History: Reports: Hypokalemia Hematologic History: Reports: Anemia, Blood Transfusion(s), Iron Deficiency - Infectious Disease History Infectious Disease History: Reports: Chicken Pox, Measles, MRSA, Mumps - Past Surgical History HEENT Surgical History: Reports: Adenoidectomy, Tonsillectomy GI Surgical History: Reports: Bariatric Procedure, Cholecystectomy, Colonoscopy, EGD, Hernia Repair/Other Female Surgical History: Reports: Lithotripsy/ESWL, Ureteral Stent Musculoskeletal Surgical History: Reports: ORIF, Shoulder Surgery Social & Family History - Family History Family Medical History: Noncontributory - Caffeine Use Caffeine Use: Reports: Coffee - Living Situation & Occupation Living situation: Reports: Occupation: Disabled ED ROS GENERAL - Review of Systems Review Of Systems: See Below Constitutional: Reports: No Symptoms HEENT: Reports: No Symptoms Respiratory: Reports: No Symptoms Cardiovascular: Reports: Chest Pain Endocrine: Reports: No Symptoms GI/Abdominal: Reports: No Symptoms : Reports: No Symptoms Musculoskeletal: Reports: No Symptoms Skin: Reports: No Symptoms Neurological: Reports: No Symptoms Psychiatric: Reports: Anxiety ED EXAM, GENERAL - Physical Exam Exam: See Below Exam Limited By: No Limitations General Appearance: Alert, No Apparent Distress Ears: Normal External Exam, Normal Canal Nose: Normal Inspection, Normal Mucosa Throat/Mouth: Normal Inspection, Normal Lips, Normal Teeth, Normal Gums Head: Atraumatic, Normocephalic Neck: Normal Inspection, Supple, Non-Tender, Full Range of Motion Respiratory/Chest: No Respiratory Distress, Lungs Clear, Normal Breath Sounds Cardiovascular: Normal Peripheral Pulses, No Edema, Tachycardia GI/Abdominal: Normal Bowel Sounds, Soft, Non-Tender, No Organomegaly Back Exam: Normal Inspection, Full Range of Motion Extremities: Normal Inspection, Normal Range of Motion, Non-Tender Neurological: Alert, Oriented, CN II-XII Intact, Normal Cognition, Normal Gait Psychiatric: Anxious Course - Vital Signs Text/Narrative:: Labs/EKG was discussed with patient Troponin x2-negative ASA 324 mg PO x1 Metoprolol 50 mg po x2 doses Hydralazine 20 mg IV x1 Ativan 1 mg IV x1 Valium 5 mg po x1 Last Recorded V/S: Last Vital Signs Temp 36.7 C 03/04/20 19:47 Pulse 80 03/04/20 22:47 Resp 18 03/04/20 19:47 BP 120/81 03/04/20 22:47 Pulse Ox 92 L 03/04/20 22:38 - Orders/Labs/Meds Orders: Active Orders 24 hr Category Date Time Status EKG Documentation Completion [RC] ASDIRECTED Care 03/04/20 19:47 Active Head wo Cont [CT] Stat Exams 03/04/20 19:46 Taken Nitroglycerin [Nitrostat] Med 03/04/20 21:30 Active 0.4 mg SL Q5M PRN Sodium Chloride 0.9% [Saline Flush] Med 03/04/20 19:46 Active 10 ml FLUSH ASDIRECTED PRN Saline Lock Insert [OM.PC] Routine Oth 03/04/20 19:46 Ordered EKG 12 Lead [EK] Routine Ther 03/04/20 19:46 Ordered Medication Orders Nitroglycerin (Nitrostat) 0.4 mg SL Q5M PRN PRN Reason: Chest Pain Last Admin: 03/04/20 21:42 Dose: 0.4 mg Documented by: BRENLOR Sodium Chloride (Saline Flush) 10 ml FLUSH ASDIRECTED PRN PRN Reason: Keep Vein Open Last Admin: 03/04/20 21:09 Dose: 10 ml Documented by: MICHAEL Labs: Laboratory Tests 03/04/20 03/04/20 03/04/20 Range/Units 20:05 20:05 20:05 WBC 7.1 (4.5-12.0) X10-3/uL RBC 4.59 (3.23-5.20) x10(6)uL Hgb 14.1 (11.5-15.5) g/dL Hct 42.4 (30.0-51.3) % MCV 92.5 (80-96) fL MCH 30.7 (27.7-33.6) pg MCHC 33.2 (32.2-35.4) g/dL RDW 13.5 (11.5-15.5) % Plt Count 231 (125-369) X10(3)uL MPV 8.3 (7.4-10.4) fL Neut % (Auto) 72.0 (46-82) % Lymph % (Auto) 21.0 (13-37) % Hayes % (Auto) 4.7 (4-12) % Eos % (Auto) 2 (1.0-5.0) % Baso % (Auto) 1 (0-2) % Neut # (Auto) 5.2 (1.6-8.3) # Lymph # (Auto) 1.5 (0.6-5.0) # Hayes # (Auto) 0.3 (0.0-1.3) # Eos # (Auto) 0.1 (0.0-0.8) # Baso # (Auto) 0.0 (0.0-0.2) # Sodium 142 (135-145) mmol/L Potassium 3.4 L (3.5-5.3) mmol/L Chloride 103 (100-110) mmol/L Carbon Dioxide 26 (21-32) mmol/L BUN 8 (7-18) mg/dL Creatinine 0.5 L (0.55-1.02) mg/dL Est Cr Clr Drug Dosing TNP Estimated GFR (MDRD) > 60 (>60) BUN/Creatinine Ratio 16.0 (9-20) Glucose 103 (80-116) mg/dL Calcium 8.8 (8.6-10.2) mg/dL Total Bilirubin 0.3 (0.1-1.3) mg/dL AST 33 H D (5-25) IU/L ALT 48 H D (12-36) U/L Alkaline Phosphatase 89 (56-112) IU/L Troponin I 11.4 (4.0-60.3) pg/mL Total Protein 6.7 (6.0-8.0) g/dL Albumin 3.6 (3.5-5.2) g/dL Globulin 3.1 g/dL Albumin/Globulin Ratio 1.2 03/04/20 Range/Units 21:55 WBC (4.5-12.0) X10-3/uL RBC (3.23-5.20) x10(6)uL Hgb (11.5-15.5) g/dL Hct (30.0-51.3) % MCV (80-96) fL MCH (27.7-33.6) pg MCHC (32.2-35.4) g/dL RDW (11.5-15.5) % Plt Count (125-369) X10(3)uL MPV (7.4-10.4) fL Neut % (Auto) (46-82) % Lymph % (Auto) (13-37) % Hayes % (Auto) (4-12) % Eos % (Auto) (1.0-5.0) % Baso % (Auto) (0-2) % Neut # (Auto) (1.6-8.3) # Lymph # (Auto) (0.6-5.0) # Hayes # (Auto) (0.0-1.3) # Eos # (Auto) (0.0-0.8) # Baso # (Auto) (0.0-0.2) # Sodium (135-145) mmol/L Potassium (3.5-5.3) mmol/L Chloride (100-110) mmol/L Carbon Dioxide (21-32) mmol/L BUN (7-18) mg/dL Creatinine (0.55-1.02) mg/dL Est Cr Clr Drug Dosing Estimated GFR (MDRD) (>60) BUN/Creatinine Ratio (9-20) Glucose (80-116) mg/dL Calcium (8.6-10.2) mg/dL Total Bilirubin (0.1-1.3) mg/dL AST (5-25) IU/L ALT (12-36) U/L Alkaline Phosphatase (56-112) IU/L Troponin I 13.1 (4.0-60.3) pg/mL Total Protein (6.0-8.0) g/dL Albumin (3.5-5.2) g/dL Globulin g/dL Albumin/Globulin Ratio Meds: Medications Generic Name Dose Route Start Last Admin Trade Name Howard PRN Reason Stop Dose Admin Nitroglycerin 0.4 mg 03/04/20 21:30 03/04/20 21:42 Nitrostat SL 0.4 mg Q5M PRN Administration Chest Pain Sodium Chloride 10 ml 03/04/20 19:46 03/04/20 21:09 Saline Flush FLUSH 10 ml ASDIRECTED PRN Administration Keep Vein Open Discontinued Medications Generic Name Dose Route Start Last Admin Trade Name Howard PRN Reason Stop Dose Admin Aspirin 324 mg 03/04/20 21:30 03/04/20 21:33 Aspirin PO 03/04/20 21:31 324 mg ONETIME ONE Administration Diazepam 5 mg 03/04/20 22:31 03/04/20 22:42 Valium. PO 03/04/20 22:32 5 mg ONETIME ONE Administration Hydralazine HCl 20 mg 03/04/20 20:51 03/04/20 21:08 Apresoline IVPUSH 03/04/20 20:52 20 mg ONETIME ONE Administration Lorazepam 1 mg 03/04/20 21:33 03/04/20 21:55 Ativan IVPUSH 03/04/20 21:34 1 mg ONETIME ONE Administration Metoprolol Succinate 50 mg 03/04/20 19:47 03/04/20 20:09 Toprol Xl PO 03/04/20 19:48 50 mg ONETIME ONE Administration Metoprolol Succinate 50 mg 03/04/20 22:29 03/04/20 22:47 Toprol Xl PO 03/04/20 22:30 50 mg ONETIME ONE Administration Potassium Chloride 40 meq 03/04/20 20:38 03/04/20 21:07 Klor-Con M20 PO 03/04/20 20:39 40 meq ONETIME ONE Administration Departure - Departure Time of Disposition: 21:30 Disposition: Home, Self-Care 01 Condition: Good Clinical Impression: Hypertensive crisis, Chest pain, Hypokalemia - Discharge Information Prescriptions: Potassium Chloride [Klor-Con M20] 40 meq PO TID #6 tab.er Instructions: Hypokalemia, Hypertension, Adult, [id number] Referrals: PCP,None [Primary Care Provider] - Additional Instructions: Please read discharge instructions on hypertension, chest pain Do not quit taking your medicine for your high blood pressure and AFIB even if your blood pressure is normal Take Klor con 20 Meq, 2 tablets 3 times daily for 1 day(for low potassium) Call your doctor tomorrow to refill your medicine Sepsis Event Note (ED) - Focused Exam Vital Signs: Vital Signs Temp Pulse Pulse Resp BP BP Pulse Ox 03/04/20 22:47 80 120/81 03/04/20 22:38 91 151/93 H 92 L 03/04/20 21:42 158/96 H 03/04/20 20:47 85 183/112 H 97 03/04/20 20:09 115 H 187/114 H 03/04/20 19:47 36.7 C 115 H 18 187/114 H 100 03/04/20 19:38 36.7 C 115 H 18 192/119 H 99 - My Orders Last 24 Hours: My Active Orders 03/04/20 19:46 Head wo Cont [CT] Stat Sodium Chloride 0.9% [Saline Flush] 10 ml FLUSH ASDIRECTED PRN Saline Lock Insert [OM.PC] Routine EKG 12 Lead [EK] Routine 03/04/20 19:47 EKG Documentation Completion [RC] ASDIRECTED 03/04/20 21:30 Nitroglycerin [Nitrostat] 0.4 mg SL Q5M PRN - Assessment/Plan Last 24 Hours: My Active Orders 03/04/20 19:46 Head wo Cont [CT] Stat Sodium Chloride 0.9% [Saline Flush] 10 ml FLUSH ASDIRECTED PRN Saline Lock Insert [OM.PC] Routine EKG 12 Lead [EK] Routine 03/04/20 19:47 EKG Documentation Completion [RC] ASDIRECTED 03/04/20 21:30 Nitroglycerin [Nitrostat] 0.4 mg SL Q5M PRN
[2020-03-04] MEDS ORDERED: LORazepam 2 MG/ML SDV IVPUSH ONE (21:33)
[2020-03-04] MEDS ORDERED: Diazepam 5 MG Tab PO ONE (22:31)
[2020-03-05 04:14] VITALS: BP 145/91
[2020-03-05 04:16] VITALS: PULSE 84
[2020-03-05] MEDS ORDERED: LORazepam 2 MG/ML SDV ONE (07:50)
== END 2020-03-04 23:05 | disposition home or self-care (01) ==
LOC: FB.ED 19:29
DX: I16.9 Hypertensive crisis, unspecified (principal); E87.6 Hypokalemia; R07.9 Chest pain, unspecified; I48.91 Unspecified atrial fibrillation; I10 Essential (primary) hypertension; I25.2 Old myocardial infarction; M19.90 Unspecified osteoarthritis, unspecified site; Z88.8 Allergy status to other drugs, medicaments and biological substances; Z88.1 Allergy status to other antibiotic agents; Z88.6 Allergy status to analgesic agent; Z88.5 Allergy status to narcotic agent; Z79.82 Long term (current) use of aspirin; Z79.899 Other long term (current) drug therapy
CPT/HCPCS: 36415; 70450; 80053; 84484; 85025; 93005; 96374; 96375; 99285; A9270; J0360; J2060

== ENCOUNTER → 2020-04-12 | Day surgery (SDC) | payer MEDICARE ==
[~2020-04-12] MED LIST changes: +Dextrose 5%-Lactated Ringers 1,000 ML IV SCH; +Ketorolac 30 MG/ML SDV IVPUSH ONE; +Lidocaine 2% 5 ML SDV INJECT ONE; -Lidocaine 2% 5 ML SDV IV ONE; +Sodium Chloride 0.9% 10 ML Syringe FLUSH PRN
--- NOTE | 2020-04-12 06:41 | EDM.PDOC ---
ED HPI GENERAL MEDICAL PROBLEM - General Chief Complaint: Gastrointestinal Problem Stated Complaint: CHOKING Time Seen by Provider: 04/12/20 06:30 Source of Information: Reports: Patient, Old Records History Limitations: Reports: No Limitations - History of Present Illness INITIAL COMMENTS - FREE TEXT/NARRATIVE: Lola comes into [facility] ED by POV following a choking episode this am. She was eating a roll when the morsel apparently became stuck at the back of the throat while attempting to swallow about 1 hour ago. Heimlich and back slaps were not successful. Upon arrival, the patient is talking with much effort, complaining of upper chest pressure, with copious sputa, no food fragments. Air exchange is heard in both lung espana. 12 minutes after arrival, the suspected food bolus apparently moved caudid relieving some pressure in the upper chest. - Related Data Allergies Allergy/AdvReac Type Severity Reaction Status Date / Time sumatriptan [From Imitrex] Allergy Severe Airway Verified 04/12/20 07:09 Tightness sumatriptan succinate Allergy Severe Airway Verified 04/12/20 07:09 [From Imitrex] Tightness amoxicillin trihydrate Allergy Rash Verified 04/12/20 07:09 [From Augmentin] aripiprazole [From Abilify] Allergy Swelling, Verified 04/12/20 07:09 Suicidal Thoughts clonidine Allergy Headache Verified 04/12/20 07:09 ketorolac tromethamine Allergy Tachycardia Verified 04/12/20 07:09 [From Toradol] methotrexate Allergy Swelling Verified 04/12/20 07:09 NSAIDS (Non-Steroidal Allergy Tachycardia Verified 04/12/20 07:09 Anti-Inflamma potassium clavulanate Allergy Rash Verified 04/12/20 07:09 [From Augmentin] pregabalin [From Lyrica] Allergy Swelling Verified 04/12/20 07:09 of Face and Legs tramadol Allergy Seizure Verified 04/12/20 07:09 Home Meds: Home Meds Aspirin [[place] Aspirin] 81 mg PO DAILY 02/02/17 [History] Multivitamin [Multi-Vitamin Daily] 1 tab PO DAILY 12/24/17 [History] Vit B Complex No.12/Niacin(B3) [Rabano Yodado Liquid] 50 mg SL DAILY 06/08/18 [History] Ferrous Sulfate [Iron] 325 mg PO DAILY 07/05/19 [History] Hydrocodone/Acetaminophen [[place] 7.5-325 Tablet] 1 tab PO BID PRN 07/05/19 [History] Triazolam 0.25 mg PO BEDTIME PRN 07/05/19 [History] Potassium Chloride [Klor-Con M20] 40 meq PO TID #6 tab.er 03/04/20 [Rx] Past Medical History HEENT History: Reports: Other (See Below) Other HEENT History: Nasal bone fracture. Cardiovascular History: Reports: Afib, Hypertension, [place] Other Cardiovascular History: History of atrial fibrillation. Atypical chest pain. Gastrointestinal History: Reports: Hiatal Hernia Other Gastrointestinal History: History of liver dysfunction. 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: Musculoskeletal History: Reports: Arthritis, Back Pain, Chronic, Fracture, Osteoporosis Other Musculoskeletal History: hx fx R asher/ankle with surgery, L wrist fx with surgery Neurological History: Reports: Migraines, Seizure Psychiatric History: Reports: Addiction, Anxiety, Depression, Emotional Problems Other Psychiatric History: hx etoh abuse, has been in tx x 1 Endocrine/Metabolic History: Reports: Hypokalemia Hematologic History: Reports: Anemia, Blood Transfusion(s), Iron Deficiency - Infectious Disease History Infectious Disease History: Reports: Chicken Pox, Measles, MRSA, Mumps - Past Surgical History HEENT Surgical History: Reports: Adenoidectomy, Tonsillectomy GI Surgical History: Reports: Bariatric Procedure, Cholecystectomy, Colonoscopy, EGD, Hernia Repair/Other Female Surgical History: Reports: Lithotripsy/ESWL, Ureteral Stent Musculoskeletal Surgical History: Reports: ORIF, Shoulder Surgery Social & Family History - Family History Family Medical History: No Pertinent Family History - Caffeine Use Caffeine Use: Reports: Coffee - Living Situation & Occupation Living situation: Reports: Occupation: Disabled ED ROS GENERAL - Review of Systems Review Of Systems: Comprehensive ROS is negative, except as noted in HPI. ED EXAM, GI/ABD - Physical Exam Exam: See Below Exam Limited By: Physical Impairment General Appearance: Alert, WD/WN, Anxious, Moderate Distress Eyes: Bilateral: Normal Appearance, EOMI Ears: Normal External Exam Nose: Normal Inspection Throat/Mouth: Normal Inspection, Normal Teeth, Normal Gums, Normal Oropharynx, No Airway Compromise Head: Normocephalic Neck: Normal Inspection, Supple, Non-Tender Respiratory/Chest: Lungs Clear, Chest Non-Tender Cardiovascular: Regular Rate, Rhythm, No Murmur GI/Abdominal Exam: Soft, Non-Tender, No Organomegaly, No Distention, No Mass (Female) Exam: Deferred Rectal (Female) Exam: Deferred Back Exam: Normal Inspection Extremities: Normal Inspection Neurological: Alert, Oriented, CN II-XII Intact, Normal Cognition, No Motor/Sensory Deficits Psychiatric: Normal Affect, Anxious Skin Exam: Warm, Dry, Intact, Normal Color, No Rash Lymphatic: No Adenopathy Course - Vital Signs Text/Narrative:: Following assessment, consult obtained from Dr. Barbosa regarding suspected esophageal obstruction from food bolus, his note appears elsewhere. Last Recorded V/S: Last Vital Signs Temp Pulse 81 04/12/20 06:30 Resp 17 04/12/20 06:30 BP 123/83 04/12/20 06:30 Pulse Ox 100 04/12/20 06:30 - Orders/Labs/Meds Orders: Active Orders 24 hr Category Date Time Status Ready for Discharge [RC] PER UNIT ROUTINE Care 04/12/20 08:00 Active CBC WITH AUTO DIFF [HEME] Stat Lab 04/12/20 06:33 Ordered Dextrose 5%-Lactated Ringers 1,000 ml Med 04/12/20 06:45 Active IV ASDIRECTED Sodium Chloride 0.9% [Saline Flush] Med 04/12/20 06:33 Active 10 ml FLUSH ASDIRECTED PRN Peripheral IV Insertion Adult [OM.PC] Routine Oth 04/12/20 06:33 Ordered Medication Orders Dextrose/Lactated Ringer's (Dextrose 5%-Lactated Ringers) 1,000 mls @ 150 mls/hr IV ASDIRECTED KATHRYN Sodium Chloride (Saline Flush) 10 ml FLUSH ASDIRECTED PRN PRN Reason: Keep Vein Open Labs: Laboratory Tests 04/12/20 04/12/20 Range/Units 06:33 06:45 Sodium 143 (135-145) mmol/L Potassium 3.9 (3.5-5.3) mmol/L Chloride 104 (100-110) mmol/L Carbon Dioxide 30 (21-32) mmol/L BUN 17 (7-18) mg/dL Creatinine 0.6 (0.55-1.02) mg/dL Est Cr Clr Drug Dosing TNP Estimated GFR (MDRD) > 60 (>60) BUN/Creatinine Ratio 28.3 H (9-20) Glucose 106 (80-116) mg/dL Calcium 9.0 (8.6-10.2) mg/dL SARS-CoV-2 RNA (ZULY) Negative (NEGATIVE) Meds: Medications Generic Name Dose Route Start Last Admin Trade Name Freq PRN Reason Stop Dose Admin Dextrose/Lactated Ringer's 1,000 mls @ 150 mls/hr 04/12/20 06:45 Dextrose 5%-Lactated Ringers IV ASDIRECTED KATHRYN Sodium Chloride 10 ml 04/12/20 06:33 Saline Flush FLUSH ASDIRECTED PRN Keep Vein Open Departure - Departure Time of Disposition: 05:00 Disposition: Still A Patient 30 Condition: Fair Clinical Impression: Foreign body in esophagus Qualifiers: Encounter type: initial encounter Qualified Code(s): T18.108A - Unspecified foreign body in esophagus causing other injury, initial encounter - Discharge Information *PRESCRIPTION DRUG MONITORING PROGRAM REVIEWED*: Not Applicable *COPY OF PRESCRIPTION DRUG MONITORING REPORT IN PATIENT PIO: Not Applicable Sepsis Event Note (ED) - Focused Exam Vital Signs: Vital Signs Pulse Resp BP Pulse Ox 04/12/20 06:30 81 17 123/83 100 - Problem List & Annotations (1) Food impaction of esophagus SNOMED Code(s): 538820736 Code(s): T18.128A - FOOD IN ESOPHAGUS CAUSING OTHER INJURY, INITIAL ENCOUNTER Status: Ruled-out Current Visit: Yes Annotation/Comment:: Per surgeon trial consultant. Qualifiers: Encounter type: initial encounter Qualified Code(s): T18.128A - Food in esophagus causing other injury, initial encounter - Problem List Review Problem List Initiated/Reviewed/Updated: Yes - My Orders Last 24 Hours: My Active Orders 04/12/20 06:33 CBC WITH AUTO DIFF [HEME] Stat Sodium Chloride 0.9% [Saline Flush] 10 ml FLUSH ASDIRECTED PRN Peripheral IV Insertion Adult [OM.PC] Routine 04/12/20 06:45 Dextrose 5%-Lactated Ringers 1,000 ml IV ASDIRECTED - Assessment/Plan Last 24 Hours: My Active Orders 04/12/20 06:33 CBC WITH AUTO DIFF [HEME] Stat Sodium Chloride 0.9% [Saline Flush] 10 ml FLUSH ASDIRECTED PRN Peripheral IV Insertion Adult [OM.PC] Routine 04/12/20 06:45 Dextrose 5%-Lactated Ringers 1,000 ml IV ASDIRECTED Plan: Follow up with PCP.
--- NOTE | 2020-04-12 07:17 | PCM.HP.2 ---
H&P History of Present Illness - General Date of Service: 04/12/20 - History of Present Illness Initial Comments - Free Text/Narative: Pt with a hx of gastric bypass. Today was eating a roll. Neeses like it got stuck. Could not control her saliva. This is the 4th presentation for what is a common problem. Pain has eased some but is now in her midchest. - Related Data Allergies/Adverse Reactions: Allergies Allergy/AdvReac Type Severity Reaction Status Date / Time sumatriptan [From Imitrex] Allergy Severe Airway Verified 04/12/20 07:09 Tightness sumatriptan succinate Allergy Severe Airway Verified 04/12/20 07:09 [From Imitrex] Tightness amoxicillin trihydrate Allergy Rash Verified 04/12/20 07:09 [From Augmentin] aripiprazole [From Abilify] Allergy Swelling, Verified 04/12/20 07:09 Suicidal Thoughts clonidine Allergy Headache Verified 04/12/20 07:09 ketorolac tromethamine Allergy Tachycardia Verified 04/12/20 07:09 [From Toradol] methotrexate Allergy Swelling Verified 04/12/20 07:09 NSAIDS (Non-Steroidal Allergy Tachycardia Verified 04/12/20 07:09 Anti-Inflamma potassium clavulanate Allergy Rash Verified 04/12/20 07:09 [From Augmentin] pregabalin [From Lyrica] Allergy Swelling Verified 04/12/20 07:09 of Face and Legs tramadol Allergy Seizure Verified 04/12/20 07:09 Home Medications: Home Meds Aspirin [[place] Aspirin] 81 mg PO DAILY 02/02/17 [History] Multivitamin [Multi-Vitamin Daily] 1 tab PO DAILY 12/24/17 [History] Vit B Complex No.12/Niacin(B3) [Rabano [place] Liquid] 50 mg SL DAILY 06/08/18 [History] Ferrous Sulfate [Iron] 325 mg PO DAILY 07/05/19 [History] Hydrocodone/Acetaminophen [[place] 7.5-325 Tablet] 1 tab PO BID PRN 07/05/19 [History] Triazolam 0.25 mg PO BEDTIME PRN 07/05/19 [History] Potassium Chloride [Klor-Con M20] 40 meq PO TID #6 tab.er 03/04/20 [Rx] Past Medical History HEENT History: Reports: Other (See Below) Other HEENT History: Nasal bone fracture. Cardiovascular History: Reports: Afib, Hypertension, MS Other Cardiovascular History: History of atrial fibrillation. Atypical chest pain. Gastrointestinal History: Reports: Hiatal Hernia Other Gastrointestinal History: History of liver dysfunction. Genitourinary History: Reports: Renal Calculus Other Genitourinary History: interstitial cystitis EMISSIONS TECHNICIAN History: Reports: Other OB/BYN History: Musculoskeletal History: Reports: Arthritis, Back Pain, Chronic, Fracture, Osteoporosis Other Musculoskeletal History: hx fx R asher/ankle with surgery, L wrist fx with surgery Neurological History: Reports: Migraines, Seizure Psychiatric History: Reports: Addiction, Anxiety, Depression, Emotional Problems Other Psychiatric History: hx etoh abuse, has been in tx x 1 Endocrine/Metabolic History: Reports: Hypokalemia Hematologic History: Reports: Anemia, Blood Transfusion(s), Iron Deficiency - Infectious Disease History Infectious Disease History: Reports: Chicken Pox, Measles, MRSA, Mumps - Past Surgical History HEENT Surgical History: Reports: Adenoidectomy, Tonsillectomy GI Surgical History: Reports: Bariatric Procedure, Cholecystectomy, Colonoscopy, EGD, Hernia Repair/Other Female Surgical History: Reports: Lithotripsy/ESWL, Ureteral Stent Musculoskeletal Surgical History: Reports: ORIF, Shoulder Surgery Social & Family History - Family History Family Medical History: No Pertinent Family History - Caffeine Use Caffeine Use: Reports: Coffee - Living Situation & Occupation Living situation: Reports: Occupation: Disabled H&P Review of Systems - Review of Systems: Review Of Systems: See Below General: Reports: No Symptoms HEENT: Reports: No Symptoms Pulmonary: Reports: No Symptoms Cardiovascular: Reports: No Symptoms Gastrointestinal: Reports: No Symptoms Genitourinary: Reports: Other Musculoskeletal: Reports: No Symptoms Skin: Reports: No Symptoms Neurological: Reports: Paresthesia Exam - Exam Exam: See Below - Exam General: Alert, Oriented Lungs: Clear to Auscultation, Normal Respiratory Effort Cardiovascular: Regular Rate, Regular Rhythm GI/Abdominal Exam: Normal Bowel Sounds, Soft, Non-Tender - Patient Data Lab Results Last 24 hrs: Laboratory Results - last 24 hr 04/12/20 Range/Units 06:45 Sodium 143 (135-145) mmol/L Potassium 3.9 (3.5-5.3) mmol/L Chloride 104 (100-110) mmol/L Carbon Dioxide 30 (21-32) mmol/L BUN 17 (7-18) mg/dL Creatinine 0.6 (0.55-1.02) mg/dL Est Cr Clr Drug Dosing TNP Estimated GFR (MDRD) > 60 (>60) BUN/Creatinine Ratio 28.3 H (9-20) Glucose 106 (80-116) mg/dL Calcium 9.0 (8.6-10.2) mg/dL Result Diagrams: 04/12/20 06:45 *Q Meaningful Use (ADM) - VTE *Q VTE Pharmacological Contraindications *Q: Patient Scheduled Surgery - Problem List (1) Food impaction of esophagus SNOMED Code(s): 174761319 ICD Code: T18.128A - FOOD IN ESOPHAGUS CAUSING OTHER INJURY, INITIAL ENCOUNTER Status: Acute Current Visit: Yes Qualifiers: Encounter type: initial encounter Qualified Code(s): T18.128A - Food in esophagus causing other injury, initial encounter Problem List Initiated/Reviewed/Updated: Yes Orders Last 24hrs: Active Orders 24 hr Category Date Time Status CBC WITH AUTO DIFF [HEME] Stat Lab 04/12/20 06:33 Ordered CORONAVIRUS COVID-19 ZULY [MOLEC] Stat Lab 04/12/20 06:33 Received Dextrose 5%-Lactated Ringers 1,000 ml Med 04/12/20 06:45 Active IV ASDIRECTED Sodium Chloride 0.9% [Saline Flush] Med 04/12/20 06:33 Active 10 ml FLUSH ASDIRECTED PRN Peripheral IV Insertion Adult [OM.PC] Routine Oth 04/12/20 06:33 Ordered Medication Orders Dextrose/Lactated Ringer's (Dextrose 5%-Lactated Ringers) 1,000 mls @ 150 m ls/hr IV ASDIRECTED KATHRYN Sodium Chloride (Saline Flush) 10 ml FLUSH ASDIRECTED PRN PRN Reason: Keep Vein Open Assessment/Plan Comment:: Plan an EGD. Procedure and risks explained to the pt to include bleeding infection and perforation. She expressed understanding and asks us to proceed. - Mortality Measure Prognosis:: Good
--- NOTE | 2020-04-12 08:05 | PCM.OPNOTE ---
- General Post-Op/Procedure Note Date of Surgery/Procedure: 04/12/20 Operative Procedure(s): upper endoscopy Findings: food impaction had cleared the esophagus as well as the gastric pouch Pre Op Diagnosis: food impaction Post-Op Diagnosis: nl exam (esophagus) Anesthesia Technique: MAC Primary Surgeon: Fan Barbosa Anesthesia Provider: Sima Quezada Pathology: none Condition: Good Free Text/Narrative:: see dictation #[id number]
--- NOTE | 2020-04-12 09:20 | OR ---
DATE OF OPERATION: 04/12/2020 SURGEON: Fan Barbosa MD PROCEDURE PERFORMED: Upper endoscopy. PREOPERATIVE DIAGNOSIS: Food impaction. POSTOPERATIVE DIAGNOSIS: Normal-appearing esophagus and gastric pouch. INDICATIONS FOR PROCEDURE: This is a 59-year-old white female who has a history of multiple food impactions and upper endoscopies. This represents the fourth episode where she has presented with signs and symptoms consistent with a food impaction. This morning, she apparently was eating a roll, felt the food get stuck in her upper esophagus, had trouble with her secretions. This sensation has cleared, and she has been able to handle her secretions. However, given her history, an upper endoscopy was offered to see if there was any residual as she was still having some mid chest discomfort. She was handling her saliva well, however. DESCRIPTION OF PROCEDURE: After an excellent IV sedation was administered, the bite block was inserted. The flexible endoscope was passed without difficulty down the patient's esophagus. There was no food impaction. There was no obvious mechanical explanation for the food impaction. The gastric pouch was entered and in fact the roll, which she had been eating, had appeared to have already passed from the pouch. The scope was not advanced down the Vinicio limb. The scope was withdrawn and as noted no marked abnormality was noted. The patient tolerated the procedure well. My recommendations are that she follow up with her PCP who is addressing this issue, and at this point, she obviously needs a manometry study to further evaluate her esophagus as she has no mechanical explanation for her difficulty. /[id number] HARSH/MARY
[2020-04-12 11:57] VITALS: BP 150/95; PULSE 84
== END | disposition home or self-care (01) ==
LOC: FB.ED 06:24 → FB.SDS 07:17
PROVIDERS: ATTEND Surgery
DX: T18.128A Food in esophagus causing other injury, initial encounter (principal); I10 Essential (primary) hypertension; I25.2 Old myocardial infarction; I48.91 Unspecified atrial fibrillation; F41.9 Anxiety disorder, unspecified; F32.9 Major depressive disorder, single episode, unspecified; Z98.890 Other specified postprocedural states; Z88.8 Allergy status to other drugs, medicaments and biological substances; Z88.1 Allergy status to other antibiotic agents; Z79.82 Long term (current) use of aspirin; Z79.899 Other long term (current) drug therapy; Z01.812 Encounter for preprocedural laboratory examination; Z20.828 Contact with and (suspected) exposure to other viral communicable diseases
CPT/HCPCS: 36415; 43235; 80048; 99284; J2001; J2250; J2704; U0002; 00731-QZ; 99283; J1885

== ENCOUNTER 2021-07-27 17:57 | Emergency (ER) | payer MEDICARE ==
[2021-07-27] MEDS: Labetalol 20 MG/4 ML Syringe IVPUSH ONE ×2 (18:24→20:26)
[2021-07-27] MEDS: Aspirin 81 MG Tab.Chew PO ONE (18:24)
[2021-07-27] MEDS: Sodium Chloride 0.9% 10 ML Syringe FLUSH PRN (18:24)
[2021-07-27] MEDS: Acetaminophen 500 MG Tab PO ONE (19:19)
[2021-07-27] MEDS: LORazepam 0.5 MG Tab PO ONE (19:59)
[2021-07-27] MEDS: hydrALAZINE 20 MG/ML SDV IM PRN (20:22)
[2021-07-27 23:45] VITALS: BP 148/84; PULSE 63
== END 2021-07-27 21:50 | disposition home or self-care (01) ==
LOC: FB.ED 17:57
DX: I16.1 Hypertensive emergency (principal); F41.9 Anxiety disorder, unspecified; R51.9 Headache, unspecified; I10 Essential (primary) hypertension; I25.2 Old myocardial infarction; I48.91 Unspecified atrial fibrillation; Z88.8 Allergy status to other drugs, medicaments and biological substances; Z88.0 Allergy status to penicillin; Z88.5 Allergy status to narcotic agent; Z88.6 Allergy status to analgesic agent; Z79.82 Long term (current) use of aspirin; Z79.899 Other long term (current) drug therapy
CPT/HCPCS: 36415; 80053; 83880; 84484; 85025; 93005; 93010; 96372; 96374; 99284; 99284-25; A9270-GY; J0360; J3490

== ENCOUNTER 2024-05-30 15:29 | Emergency (ER) | payer MEDICARE ==
[2024-05-30] MEDS ORDERED: Doxycycline 100 MG Tab PO ONE (15:30)
[2024-05-30 16:16] VITALS: BP 175/95; PULSE 89
== END 2024-05-30 18:11 | disposition home or self-care (01) ==
LOC: FB.ED 15:29
DX: J20.9 Acute bronchitis, unspecified (principal); I25.2 Old myocardial infarction; I10 Essential (primary) hypertension; M19.90 Unspecified osteoarthritis, unspecified site; Z90.49 Acquired absence of other specified parts of digestive tract; Z98.84 Bariatric surgery status; Z88.0 Allergy status to penicillin; Z88.8 Allergy status to other drugs, medicaments and biological substances; Z88.5 Allergy status to narcotic agent; Z88.6 Allergy status to analgesic agent; Z79.82 Long term (current) use of aspirin; Z79.899 Other long term (current) drug therapy
CPT/HCPCS: 99284; A9270-GY